=== PATIENT | male | born 1950 ===

== ENCOUNTER 2018-12-13 06:12 | Inpatient (IN) | payer OTHER ==
[2018-12-13] MEDS ORDERED: BENZOIN TINCTURE SWABSTICK TP ONE (07:15)
[2018-12-13] MEDS ORDERED: HEPARIN NA (PORCINE) 5,000 UNITS/ML 1ML VIAL ONE (07:15)
[2018-12-13] MEDS ORDERED: THROMBIN (BOVINE) 5,000 UNIT VIAL TP ONE ×2 (07:16→09:22)
[2018-12-13] MEDS ORDERED: BUPIVACAINE HCL/PF 0.5% (5MG/ML) 10 ML VIAL ONE (07:19)
[2018-12-13] MEDS ORDERED: BUPIVACAINE LIPOSOME/PF (EXPAREL) 266 MG/20 ML VIAL ONE (07:19)
[2018-12-13] MEDS ORDERED: PROPOFOL 20 ML ONE ×10 (07:30→10:52)
[2018-12-13] MEDS ORDERED: SUCCINYLCHOLINE CHLORIDE 200 MG/10 ML VIAL ONE (07:30)
[2018-12-13] MEDS ORDERED: MIDAZOLAM HCL 2 MG/2 ML SINGLE DOSE VIAL ONE ×2 (07:31)
[2018-12-13] MEDS ORDERED: DESFLURANE GAS 240 ML BOTTLE IH ONE (07:44)
[2018-12-13] MEDS ORDERED: VANCOMYCIN 1,000 MG VIAL (RESTRICTED TO ID ONLY) ONE (08:25)
[2018-12-13] MEDS ORDERED: VANCOMYCIN 1,000 MG VIAL (RESTRICTED TO ID ONLY) IVPB ONE (08:40)
[2018-12-13] MEDS ORDERED: ceFAZolin SODIUM 1 GM VIAL ONE ×2 (08:56→11:19)
[2018-12-13] MEDS ORDERED: ceFAZolin SODIUM 1 GM VIAL IVPB ONE (09:00)
[2018-12-13] MEDS ORDERED: ONDANSETRON 4 MG/2 ML VIAL ONE (09:02)
[2018-12-13] MEDS ORDERED: TRANEXAMIC ACID 1000 MG/10 ML VIAL ONE ×2 (09:02→11:46)
[2018-12-13] MEDS ORDERED: DEXAMETHASONE SOD PHOSPHATE 4 MG/1 ML VIAL ONE (09:02)
[2018-12-13] MEDS ORDERED: SODIUM CHLORIDE 0.9% P/F 10 ML VIAL IJ ONE (09:08)
[2018-12-13] MEDS ORDERED: ROCURONIUM BROMIDE 50 MG/5 ML VIAL ONE (09:10)
[2018-12-13] MEDS ORDERED: PHENYLEPHRINE HCL 10 MG/1 ML SINGLE DOSE VIAL ONE (09:18)
[2018-12-13] MEDS ORDERED: NEOSTIGMINE METHYLSULFATE 0.5 MG/1 ML - 10 ML MDV ONE (09:51)
[2018-12-13] MEDS ORDERED: ePHEDrine SULFATE 50 MG/1 ML AMPULE ONE (10:06)
[2018-12-13] MEDS ORDERED: ONDANSETRON 4 MG/2 ML VIAL IVPUSH PRN (11:07)
[2018-12-13] MEDS ORDERED: diphenhydrAMINE HCL 25 MG CAPSULE (FP) PO PRN (11:07)
[2018-12-13] MEDS ORDERED: POLYETHYLENE GLYCOL 3350 119 GM BTL PO PRN (11:12)
[2018-12-13] MEDS ORDERED: SENNOSIDES 8.6MG TABLET (FP) PO PRN (11:13)
[2018-12-13] MEDS ORDERED: HYDROmorphone HCl 2 MG/ML VIAL ONE (11:33)
[2018-12-13] MEDS: LACTATED RINGERS SOLUTION 1,000 ML/1,000 ML INFUS.BAG IV SCH (12:45)
--- NOTE | 2018-12-13 13:42 | CONSULT ---
Consultation: REQUESTING PROVIDER: Dr. Santos CONSULT REQUEST: We have been asked to medically evaluate this patient for ( specify) post-op ICU monitoring s/p lumbar surgery. HISTORY OF PRESENT ILLNESS: 68M w/ pmhx of HTN, NIDDM, chronic back pain presents to the ICU s/p L3-L4, L4- L5 diskectomy and PLIF w/ incidental durostomy, POD #0. Pt has had chronic back pain since which he admits to only taking Motrin, and occasionally Percocet although he actively tries to avoid taking narcotics for the pain. In 2018, pt underwent two lumbar spinal surgeries (1 month apart) from another surgeon due to lumbar disc herniation, although he complained of recurrent herniation in the same level and decided to proceed with surgical treatment with Dr. Santos instead. Pt complains of chronic sciatica on his R leg where he admits to using a cane for the past 1.5 years due to pain during ambulation. Upon exam, he complains of his back feeling "tired". Admits to 6/10 pain, but pain is well-controlled. Denies f/c, lo/d, chest pain, sob, abd pain, numbness/ tingling in extremities. PMHx: HTN, NIDDM PSH: hernia repair (2018), lumbar spinal surgery x2 (2018), L leg laceration repair due to chainsaw injury at workplace FHx: Mother- DM Social: Denies tobacco, alcohol, rec drug use. Denies recent travel. 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 REVIEW OF SYSTEMS: Neg, except as per HPI PHYSICAL EXAMINATION Vital Signs - 24 hr 12/13/18 12/13/18 12/13/18 06:41 12:45 13:00 Temperature 98.1 F 98.3 F 97.9 F Pulse Rate 112 H 95 H 90 Respiratory 20 14 13 Rate Blood Pressure 112/71 107/82 104/62 O2 Sat by Pulse 98 95 100 Oximetry (%) 12/13/18 13:15 Temperature 97.7 F Pulse Rate 90 Respiratory 20 Rate Blood Pressure 125/79 O2 Sat by Pulse 100 Oximetry (%) GENERAL: AAOx3. NAD. Mildy uncomfortable in bed. HEENT: AT/NC. EOMI. MMM NECK: Normal range of motion, supple without lymphadenopathy, JVD, or masses. LUNGS: CTA B/L. No wheezes/crackles/rales noted. HEART: RRR. Normal S1, S2. No murmurs noted. ABDOMEN: Soft, nontender, not distended, hypoactive bowel sounds. MUSCULOSKELETAL: Lumbar spine dressing c/d/i. lower back tenderness. UPPER EXTREMITIES: 2+ radial pulses b/l. Moves both UE. No peripheral edema. LOWER EXTREMITIES: 2+ pulses, warm, well-perfused. No calf tenderness. No peripheral edema. Moves b/l toes and feet. NEUROLOGICAL: Responds to commands. Facial muscles intact. No tongue deviation. Normal sensation b/l. SKIN: Warm, dry, normal turgor, no rashes or lesions noted. Laboratory Results - last 24 hr 12/13/18 12/13/18 12/13/18 06:20 06:49 07:40 POC Glucometer 167 Blood Type B POSITIVE B POSITIVE Antibody Screen Negative Active Medications Acetaminophen (Ofirmev Injection -) 1,000 mg IVPB Q6H PRN PRN Reason: PAIN OR FEVER Diphenhydramine HCl (Benadryl -) 25 mg PO Q6H PRN PRN Reason: FOR ITCHING Docusate Sodium (Colace -) 100 mg PO TID [facility] Ferrous Sulfate (Feosol -) 325 mg PO DAILY [facility] Folic Acid (Folic Acid -) 1 mg PO DAILY [facility] Hydromorphone HCl (Dilaudid Vial -) 1 mg IVPUSH Q4H PRN PRN Reason: PAIN LEVEL 6-10 Cefazolin Sodium (Ancef 1 Gm Premixed Ivpb -) 1 gm in 50 mls @ 100 mls/hr IVPB Q8H [facility] Stop: 12/14/18 16:59 Lactated Ringer's (Lactated Ringers Solution) 1,000 ml in 1,000 mls @ 125 mls/ hr IV ASDIR [facility] Insulin Aspart (Novolog Vial Sliding Scale -) 1 vial SQ BIDAC [facility]; Protocol Lisinopril (Prinivil) 20 mg PO DAILY [facility] Ondansetron HCl (Zofran Injection) 4 mg IVPUSH Q6H PRN PRN Reason: NAUSEA Polyethylene Glycol (Miralax (For Daily Use) -) 17 gm PO DAILY PRN PRN Reason: CONSTIPATION Senna (Senna -) 2 tab PO HS PRN PRN Reason: CONSTIPATION Terazosin HCl (Hytrin -) 2 mg PO DAILY [facility] ASSESSMENT/PLAN: 68M w/ pmhx of HTN, NIDDM, chronic back pain presents to the ICU s/p L3-L4, L4- L5 diskectomy and PLIF w/ incidental durostomy, POD #0 admitted to the ICU for post-op monitoring. #S/p L3-L4, L4-L5 diskectomy and PLIF w/ incidental durostomy; POD #0 -Keep pt flat x48 hours; HOB @ 30 degrees when eating -IVf -Pain control per anesthesia: IV Tylenol, Dilaudid 1 mg IVP Q4H -IV Abx per surg -PT on Thursday -Clears, ADAT -Keep dennis until OOB -SCDs/IS -Zofran 4 IVP Q6H for nausea -Bowel regimen: Colace 100 TID, Miralax 17 QD, Senna 2 tab HS #HTN Cont home med: Lisinopril 20 QD #NIDDM -BGM/ISS ACHS #BPH Cont home med: Terazosin 2 PO QD #Prophylaxis -SCDs, hold chemical ppx #FEN -LR @ 125 -replete lytes PRN -CLD Admit to ICU Dispo: We will continue to follow the patient. Thank you for this consultative opportunity. Visit type - Emergency Visit Emergency Visit: No - New Patient This patient is new to me today: Yes Date on this admission: 12/13/18 - Critical Care Critical Care patient: Yes Total Critical Care Time (in minutes): 35 Critical Care Statement: The care of this patient involved high complexity decision making to prevent further life threatening deterioration of the patient 's condition and/or to evaluate & treat vital organ system(s) failure or risk of failure.
[2018-12-13] MEDS: DOCUSATE SODIUM 100 MG CAPSULE (FP) PO SCH (14:58)
[2018-12-13] MEDS ORDERED: LISINOPRIL 20 MG TABLET (FP) PO ONE (15:25)
--- NOTE | 2018-12-13 17:14 | OP ---
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 Laminectomy of L3-L4 with undercutting facetectomy. 2. Diskectomy of L3-L4, L4-L5. 3. Posterior lumbar interbody fusion L3-L4, L4-L5 with autologous bone and Fortilink intradiscal biomechanical device (interbody) L3-L4 , L4-L5. 4. Pedicle screw instrumentation of L3, L4, and L5. 5. Pressuried arthrodesis of L3, L4, L5 6. Bone aspirate concentrate. 7. Autologous bone graft harvested with expansion of allograft. 8. Biplanar fluoroscopy and intraoperative neural monitoring. Findings: as dictated Implants: as dictated Post-Operative Diagnosis: Same as Pre-op Surgeon: Uzair Santos Artificial Breast Fabricator: Parker Walden Anesthesiologist/INTERNATIONAL STUDENT ADVISOR: Meng Suggs Anesthesia: General Specimens Removed: L3-L5 disc Estimated Blood Loss (mls): 400 (ml) Drains, Volume Out (mls): 150 (ml clear urine) Blood Volume Replaced (mls): 125 (ml via cell saver) Fluid Volume Replaced (mls): 1,600 (ml LR) Operative Report Dictated: Yes
[2018-12-13] MEDS: ACETAMINOPHEN 1000 MG/100 ML VIAL (NON FORMULARY) IVPB PRN (17:17)
[2018-12-13] MEDS: CEFAZOLIN 1 GM/D5W 1 GM/50 ML BAG IVPB SCH (17:18)
[2018-12-13] MEDS: INSULIN SLIDING SCALE (NOVOLOG) 1 VIAL SQ SCH (17:19)
[2018-12-13] MEDS ORDERED: ACETAMINOPHEN 325 MG TABLET (FP) PO PRN (19:00)
[2018-12-13] MEDS: HYDROmorphone HCl 2 MG/ML VIAL IVPUSH PRN (21:34)
--- NOTE | 2018-12-13 23:37 | PN ---
Physical Exam: SUBJECTIVE: Patient seen and examined at bedside, awake, alert and oriented. s/ p L2-S1 Posterior Lumbar Interbody Fusion POD #0. Patient reports having lumbar pain and coldness to b/l feet. Painscale 03/07. Patient denies fever, cough, dizziness, MAZARIEGOS, SOB, CP, palpitations, AP, N/V/D. OBJECTIVE: Vital Signs Period Temp Pulse Resp BP Sys/Mathews Pulse Ox Last 24 Hr 97.7 F-98.4 F 83-112 9-20 104-168/62-94 95-100 GENERAL: The patient is awake, alert, and fully oriented, in no acute distress. HEAD: Normal with no signs of trauma. EYES: PERRL, extraocular movements intact, sclera anicteric, conjunctiva clear. No ptosis. ENT: Ears normal, nares patent, oropharynx clear without exudates, moist mucous membranes. NECK: Trachea midline, full range of motion, supple. LUNGS: Breath sounds equal, clear to auscultation bilaterally, no wheezes, no crackles, no accessory muscle use. HEART: Regular rate and rhythm, S1, S2 without murmur, rub or gallop. ABDOMEN: Soft, nontender, nondistended, hypoactive bowel sounds, no guarding, no rebound, no hepatosplenomegaly, no masses. MUSCULOSKELETAL: unable to assess dressing, (patient is in pain) EXTREMITIES: 2+ pulses, warm, well-perfused, no edema. NEUROLOGICAL: Cranial nerves II through XII grossly intact. Normal speech, gait not observed. PSYCH: Normal mood, normal affect. SKIN: Warm, dry, normal turgor, no rashes or lesions noted Laboratory Results - last 24 hr 12/13/18 12/13/18 12/13/18 06:20 06:49 07:40 POC Glucometer 167 Blood Type B POSITIVE B POSITIVE Antibody Screen Negative 12/13/18 12/13/18 16:28 23:08 POC Glucometer 193 176 Blood Type Antibody Screen Active Medications Generic Name Dose Route Start Last Admin Trade Name Freq PRN Reason Stop Dose Admin Acetaminophen 1,000 mg 12/13/18 12:52 12/13/18 17:17 Ofirmev Injection - IVPB 1,000 mg Q6H PRN Administration PAIN OR FEVER Diphenhydramine HCl 25 mg 12/13/18 11:07 Benadryl - PO Q6H PRN FOR ITCHING Docusate Sodium 100 mg 12/13/18 14:00 12/13/18 14:58 Colace - PO Not Given TID [facility] Ferrous Sulfate 325 mg 12/14/18 10:00 Feosol - PO DAILY [facility] Folic Acid 1 mg 12/14/18 10:00 Folic Acid - PO DAILY [facility] Hydromorphone HCl 1 mg 12/13/18 12:50 12/13/18 21:34 Dilaudid Vial - IVPUSH 1 mg Q4H PRN Administration PAIN LEVEL 6-10 Cefazolin Sodium 1 gm in 50 mls @ 100 mls/hr 12/13/18 17:00 12/13/18 17:18 Ancef 1 Gm Premixed Ivpb - IVPB 12/14/18 16:59 100 mls/hr Q8H [facility] Administration Lactated Ringer's 1,000 ml in 1,000 mls @ 125 mls/hr 12/13/18 11:15 12/13/18 12:45 Lactated Ringers Solution IV 125 mls/hr ASDIR [facility] Administration Insulin Aspart 1 vial 12/13/18 16:30 12/13/18 17:19 Novolog Vial Sliding Scale - SQ 2 units BIDAC [facility] Administration Protocol Lisinopril 20 mg 12/14/18 10:00 Prinivil PO DAILY [facility] Ondansetron HCl 4 mg 12/13/18 11:07 Zofran Injection IVPUSH Q6H PRN NAUSEA Polyethylene Glycol 17 gm 12/13/18 11:12 Miralax (For Daily Use) - PO DAILY PRN CONSTIPATION Senna 2 tab 12/13/18 11:13 Senna - PO HS PRN CONSTIPATION Terazosin HCl 2 mg 12/14/18 10:00 Hytrin - PO DAILY [facility] ASSESSMENT/PLAN: This is a 68 y/o man with a PMHx of: HTN, DM, BPH, Chronic Lumbar Pain. s/p L2- S1 Posterior Lumbar Interbody Fusion POD #0. Plan: Will continue Ortho regimen Pain Mgmt- Dilaudid AUTOMOTIVE SALES PROFESSIONAL, per ortho Incentive Spirometer Monitor CBC, BMP Bedrest 48hrs per Ortho BGMs ISS Continue Hytrin, Lisinopril Hold Metformin Bowel Regimen- Senna, Colace Low Na, Diabetic Diet Fall Precautions Code Status: Full Code Dispo: Requires Inpatient Care Problem List - Problems (1) S/P lumbar spinal fusion Code(s): Z98.1 - ARTHRODESIS STATUS (2) HTN (hypertension) Code(s): I10 - ESSENTIAL (PRIMARY) HYPERTENSION (3) Diabetes mellitus Code(s): E11.9 - TYPE 2 DIABETES MELLITUS WITHOUT COMPLICATIONS (4) BPH (benign prostatic hyperplasia) Code(s): N40.0 - BENIGN PROSTATIC HYPERPLASIA WITHOUT LOWER URINRY TRACT SYMP Visit type - Emergency Visit Emergency Visit: No - New Patient This patient is new to me today: Yes Date on this admission: 12/13/18 - Critical Care Critical Care patient: Yes Total Critical Care Time (in minutes): 32 Critical Care Statement: The care of this patient involved high complexity decision making to prevent further life threatening deterioration of the patient 's condition and/or to evaluate & treat vital organ system(s) failure or risk of failure. - Discharge Referral Referred to [facility] Med P.C.: No
[2018-12-14] MEDS: CEFAZOLIN 1 GM/D5W 1 GM/50 ML BAG IVPB SCH ×2 (02:00→09:18)
[2018-12-14] MEDS: HYDROmorphone HCl 2 MG/ML VIAL IVPUSH PRN ×5 (05:26→23:55)
[2018-12-14] MEDS ORDERED: HEPARIN NA (PORCINE) 5,000 UNITS/ML 1ML VIAL SQ SCH (06:00)
[2018-12-14 06:15] LABS: HEMATOCRIT 37.3 % (35.4-49); HEMOGLOBIN 13.5 GM/dL (11.7-16.9); MCH 31.7 pg (25.7-33.7); MCHC 36.3 g/dl (32.0-35.9); MEAN CELL VOLUME 87.4 fl (80-96); MEAN PLT VOLUME 7.9 fl (7.5-11.1); PLATELET COUNT 173 K/MM3 (134-434); RBC 4.27 M/mm3 (4.00-5.60); WHITE BLOOD COUNT 13.6 K/mm3 (4.0-10.0)
[2018-12-14] MEDS: DOCUSATE SODIUM 100 MG CAPSULE (FP) PO SCH ×4 (06:36→22:18)
[2018-12-14] MEDS: ACETAMINOPHEN 1000 MG/100 ML VIAL (NON FORMULARY) IVPB PRN (06:37)
[2018-12-14 06:44] LABS: ANION GAP 6 MMOL/L (8-16); BLOOD UREA NITROGEN 13 mg/dL (7-18); CALCIUM 8.6 mg/dL (8.5-10.1); CHLORIDE 105 mmol/L (98-107); CO2 27 mmol/L (21-32); CREATININE 0.7 mg/dL (0.55-1.3); GLUCOSE,RANDOM 141 mg/dL (74-106); SODIUM 137 mmol/L (136-145)
[2018-12-14] MEDS: INSULIN SLIDING SCALE (NOVOLOG) 1 VIAL SQ SCH ×2 (06:52→17:15)
--- NOTE | 2018-12-14 07:26 | PN ---
Physical Exam: SUBJECTIVE: Patient seen and examined at bedside. Complaining of back pain after his sheets were changed this AM. Denies lo/d, n/v, chest pain, sob, abd pain. Has not passed flatus yet. No other acute events overnight. OBJECTIVE: Vital Signs Period Temp Pulse Resp BP Sys/Mathews Pulse Ox Last 24 Hr 97.7 F-99.1 F 83-95 9-20 104-168/62-94 95-100 GENERAL: AAOx3. NAD. Resting comfortable in bed. HEENT: AT/NC. EOMI. MMM NECK: Normal range of motion, supple without lymphadenopathy, JVD, or masses. LUNGS: CTA B/L. No wheezes/crackles/rales noted. HEART: RRR. Normal S1, S2. No murmurs noted. ABDOMEN: Soft, nontender, not distended, hypoactive bowel sounds. MUSCULOSKELETAL: Lumbar spine dressing c/d/i. lower back tenderness. UPPER EXTREMITIES: 2+ radial pulses b/l. Moves both UE. No peripheral edema. LOWER EXTREMITIES: 2+ pulses, warm, well-perfused. No calf tenderness. No peripheral edema. Moves b/l toes and feet. NEUROLOGICAL: Responds to commands. Facial muscles intact. No tongue deviation. Normal sensation b/l. SKIN: Warm, dry, normal turgor, no rashes or lesions noted. CBC, BMP 12/14/18 05:30 12/14/18 05:30 Active Medications Acetaminophen (Ofirmev Injection -) 1,000 mg IVPB Q6H PRN PRN Reason: PAIN OR FEVER Last Admin: 12/14/18 06:37 Dose: 1,000 mg Diphenhydramine HCl (Benadryl -) 25 mg PO Q6H PRN PRN Reason: FOR ITCHING Docusate Sodium (Colace -) 100 mg PO TID [facility] Last Admin: 12/14/18 06:53 Dose: 100 mg Ferrous Sulfate (Feosol -) 325 mg PO DAILY [facility] Folic Acid (Folic Acid -) 1 mg PO DAILY [facility] Hydromorphone HCl (Dilaudid Vial -) 1 mg IVPUSH Q4H PRN PRN Reason: PAIN LEVEL 6-10 Last Admin: 12/14/18 05:26 Dose: 1 mg Cefazolin Sodium (Ancef 1 Gm Premixed Ivpb -) 1 gm in 50 mls @ 100 mls/hr IVPB Q8H [facility] Stop: 12/14/18 16:59 Last Admin: 12/14/18 02:00 Dose: 100 mls/hr Lactated Ringer's (Lactated Ringers Solution) 1,000 ml in 1,000 mls @ 125 mls/ hr IV ASDIR [facility] Last Admin: 12/13/18 12:45 Dose: 125 mls/hr Insulin Aspart (Novolog Vial Sliding Scale -) 1 vial SQ BIDAC [facility]; Protocol Last Admin: 12/14/18 06:52 Dose: 2 units Lisinopril (Prinivil) 20 mg PO DAILY [facility] Ondansetron HCl (Zofran Injection) 4 mg IVPUSH Q6H PRN PRN Reason: NAUSEA Polyethylene Glycol (Miralax (For Daily Use) -) 17 gm PO DAILY PRN PRN Reason: CONSTIPATION Senna (Senna -) 2 tab PO HS PRN PRN Reason: CONSTIPATION Terazosin HCl (Hytrin -) 2 mg PO DAILY [facility] ASSESSMENT/PLAN: 68M w/ pmhx of HTN, NIDDM, chronic back pain presents to the ICU s/p L3-L4, L4- L5 diskectomy and PLIF w/ incidental durostomy, POD #0 admitted to the ICU for post-op monitoring. Neuro #S/p L3-L4, L4-L5 diskectomy and PLIF w/ incidental durostomy; POD #0 -remain supine for next 24 hours -IVf -Pain control per anesthesia: IV Tylenol, Dilaudid 1 mg IVP Q4H -IV Abx per surg -PT to begin 12/15/18 -Clears, ADAT -D/c dennis -SCDs/IS -Zofran 4 IVP Q6H for nausea -Bowel regimen: Colace 100 TID, Miralax 17 QD, Senna 2 tab HS CV #HTN Cont home med: Lisinopril 20 QD, Terazosin 2 QD Endo #NIDDM -BGM/ISS ACHS Prophylaxis -SCDs, hold chemical ppx FEN -LR @ 125 -replete lytes PRN -CLD, ADAT dispo -cont to monitor in ICU Visit type - Emergency Visit Emergency Visit: Yes ED Registration Date: 12/13/18 Care time: The patient presented to the Emergency Department on the above date and was hospitalized for further evaluation of their emergent condition. - New Patient This patient is new to me today: No - Critical Care Critical Care patient: Yes Total Critical Care Time (in minutes): 35 Critical Care Statement: The care of this patient involved high complexity decision making to prevent further life threatening deterioration of the patient 's condition and/or to evaluate & treat vital organ system(s) failure or risk of failure.
--- NOTE | 2018-12-14 08:07 | PN ---
Progress Note (short form) - Note Progress Note: POD #1 Alert. Remains supine in bed as instructed (precaution 2/2 repair of incidental dural tear/repair). No acute events per RN notes since surgery. Dennis remains in and will cont to do so until he is OOB. Denies n/v/f/c, CP, SOB, GARCIA, MAZARIEGOS or photophobia. Last Vital Signs Temp Pulse Resp BP Pulse Ox 99.1 F 84 11 128/75 100 12/14/18 02:00 12/14/18 02:00 12/14/18 02:00 12/14/18 02:00 12/13/18 21:00 CBC, BMP 12/14/18 05:30 12/14/18 05:30 PE Gen: alert. NAD. Back: dressing c/d/i. No hematoma. : dennis to gravity (clear) LE: SCDs bilat. Soft. NT Neuro; GMNVI bilat Problem List - Problems (1) S/P lumbar spinal fusion Assessment/Plan: POD #1 s/p L3-L5 PLIF, repair of durotomy Pain management PRN Remain supine for next 24 hours Finger sticks ACHS --> tight glycemic control Dennis to remain until he is OOB to chair PT to begin 12/15/18 Incentive spirometer SCDs bilat Diet as tolerated. Dr. Santos made aware and agrees with above plan. Code(s): Z98.1 - ARTHRODESIS STATUS
--- NOTE | 2018-12-14 08:25 | OP ---
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 OPERATION PERFORMED: 1. Laminectomy of L3-L4 with undercutting facetectomy. 2. Diskectomy of L3-L4, L4-L5. 3. Posterior lumbar interbody fusion L3-L4, L4-L5 with autologous bone and Fortilink intradiscal biomechanical device (interbody) L3-L4 and L4-L5. 4. Pedicle screw instrumentation of L3, L4, and L5. 5. Posterolateral arthrodesis of L3, L4, and L5. 6. Bone aspirate concentrate. 7. Autologous bone graft harvested with expansion of allograft. 8. Biplanar fluoroscopy and intraoperative neural monitoring. ANESTHESIA: General. ANTIBIOTICS GIVEN: Kefzol 2 g, 1 g vancomycin preoperative, 1 g Kefzol intraoperatively, and 10 mg of Decadron given as well. BLOOD LOSS: Approximately 400 mL; 200 Cell Saver given back. OPERATION IN DETAIL: With the patient prone on jelly rolls, after general anesthesia, all bony prominences were properly padded. The lumbar spine was exposed from the tip of the spinous process of L2 to the tip of the spinous process of L5. It must be noted that this is a revision surgery because the previous microdiskectomy on the right L3-L4 disk had originally been performed. The dissection was taken through the skin and subcutaneous tissue to the tip of the spinous processes. A subperiosteal resection was performed and spread down to the spinous process, across the lamina, over the facet joints, and out to the tip of the transverse processes, lifting the muscle off of the transverse process. The intertransverse plane was packed with sponges. This achieved hemostasis. Verification of the levels with a lateral fluoroscopic x-ray utilized. The fibrosis from the previous surgery was readily noted. Dissection with exposure of the lamina using Kerrison up-cuts, Leksell rongeurs, a laminectomy was performed; however, the adherence was so severe at L3-L4 on the right-hand side that the only way to get under the dura to get to the disk prolapse was to go through previously operated tissue and the root of that was by utilizing an osteotomy. The pars articularis and inferior facet at each level was resected. This was then followed by exposure of the area. A small dural tear because of the adherence of the dura to the underlying bone occurred. This rest was intact, but the dura was repaired with 4-0 nylon sutures. Watertight seal achieved. On 2 separate occasions, Valsalva maneuver was performed up to 40 mmHg and completely sealed. Once the dura was freed completely on both left and right-hand sides, with painstaking difficulty, we were able to get under the nerve root of the L3 level and retract this gently from [id number] to expose a massive disk prolapse with inferior migration of the disk under and trapped by the posterior longitudinal ligament. The annulus was opened. All disk material was removed. The disk was then shaved appropriately. At this level, using serrated curette as well as pituitary rongeurs, all disk material was then removed right down to healthy endplate bleeding bone. The disk itself was packed with bone that was harvested from the posterior elements and packed into the interbody space followed by the Fortilink cage, which measured 9 x 22 mm. This was packed with bone graft. Solid pressure fixation achieved. We shaved to 9 and inserted a 10. We performed the exact same procedure at L4-L5. This necessitated far less dissection because this was virgin tissue. The theca was retracted. The disc opened, shaved, and a spacer measuring 9 mm and shaving was to size 8 mm. All disk material likewise was exactly in the same manner as the L3-L4 disk was removed using the Kerrison up-cuts as well as pituitary rongeurs. Serrated curettes also ensured that the end-plate bone was healthy. Once this had been performed, the dura was once again inspected. A thorough lavage was performed. Verification of the cages on x-ray revealed excellent seating. Pedicles of L3, L4, and L5 were then entered using anatomic guidelines. Each pedicle was drilled with a 4.5 drill. Each pedicle was palpated with a ball-tipped feeler and found to be completely safe with normal neural parameters. Then, 40 mm x 6.5 screws x 6 were inserted, 1 into each pedicle. Each pedicle was tested with intraoperative neural monitoring and found to be well above the safe parameters. Once we were satisfied with the screw seating, which included EMG stimulation and anatomic guideline seating and AP and lateral fluoroscopic films, the actual rods were then applied to the tulips and the screw heads, tightened with the appropriate caps, and 1 cross link applied. Solid fixation achieved. The bone, which was mixture of bone marrow aspirate concentrate from the left posterior ileum, 60 mL were removed through the same incision, and this was spun down for the CD34 cells. This left an appropriate thick fluid residue which was filled with CD34 cells, mixture of bone graft, and packed into the interbody space in the intertransverse plane appropriately. No complications. The wounds were thoroughly lavaged. Muscle was appropriately trimmed of necrotic damaged muscle from the retractors and the skin was closed with complex wound closure with muscle 1 Vicryl, fascia 1 Vicryl, subcutaneous 1 and 2-0 Vicryl in layers, and 3-0 Monocryl with Steri-Strips. No drains inserted. Operation went well. No complications. The measurement of the complex wound was 30 mL. MD CHAU Presley/[id number] MTDD
[2018-12-14] MEDS ORDERED: PT OWN MED DRAWER 7, Y5N ONE (09:00)
[2018-12-14] MEDS ORDERED: TERAZOSIN HCL 1 MG CAPSULE PO SCH (10:00)
[2018-12-14] MEDS ORDERED: FOLIC ACID 1 MG TABLET (FP) PO SCH (10:00)
[2018-12-14] MEDS ORDERED: FERROUS SO4 325 MG TABLET (FP) PO SCH (10:00)
[2018-12-14] MEDS ORDERED: LISINOPRIL 20 MG TABLET (FP) PO SCH (10:00)
[2018-12-14] MEDS ORDERED: TERAZOSIN HCL 2 MG CAPSULE PO SCH (10:00)
--- NOTE | 2018-12-14 10:25 | PN ---
Physical Exam: SUBJECTIVE: Patient seen and examined at the bedside. laying in bed flat. reports some pain relieved with dilaudid. OBJECTIVE: pod #1 surgical site not viewed, as pt is having pain Vital Signs Period Temp Pulse Resp BP Sys/Mathews Pulse Ox Last 24 Hr 97.7 F-99.1 F 82-95 9-20 104-168/62-94 95-100 GENERAL: The patient is awake, alert, and fully oriented, in no acute distress. HEAD: Normal with no signs of trauma. EYES: PERRL, extraocular movements intact, sclera anicteric, conjunctiva clear. No ptosis. ENT: Ears normal, nares patent, oropharynx clear without exudates, moist mucous membranes. NECK: Trachea midline, full range of motion, supple. LUNGS: Breath sounds equal, clear to auscultation anteriorly. HEART: Regular rate and rhythm ABDOMEN: Soft, nontender, nondistended, normoactive bowel sounds, EXTREMITIES: no edema. NEUROLOGICAL:normal speech, gait not observed. PSYCH: Normal mood, normal affect. Laboratory Results - last 24 hr 12/13/18 12/13/18 12/14/18 16:28 23:08 05:30 WBC 13.6 H RBC 4.27 Hgb 13.5 Hct 37.3 MCV 87.4 MCH 31.7 MCHC 36.3 H RDW 13.0 Plt Count 173 MPV 7.9 Sodium Potassium Chloride Carbon Dioxide Anion Gap BUN Creatinine Creat Clearance w eGFR POC Glucometer 193 176 Random Glucose Calcium 12/14/18 12/14/18 05:30 06:50 WBC RBC Hgb Hct MCV MCH MCHC RDW Plt Count MPV Sodium 137 Potassium 4.0 Chloride 105 Carbon Dioxide 27 Anion Gap 6 L BUN 13 Creatinine 0.7 Creat Clearance w eGFR 112.83 POC Glucometer 154 Random Glucose 141 H Calcium 8.6 Active Medications Generic Name Dose Route Start Last Admin Trade Name Freq PRN Reason Stop Dose Admin Acetaminophen 1,000 mg 12/13/18 12:52 12/14/18 06:37 Ofirmev Injection - IVPB 1,000 mg Q6H PRN Administration PAIN OR FEVER Diphenhydramine HCl 25 mg 12/13/18 11:07 Benadryl - PO Q6H PRN FOR ITCHING Docusate Sodium 100 mg 12/13/18 14:00 12/14/18 06:53 Colace - PO 100 mg TID LETY Administration Ferrous Sulfate 325 mg 12/14/18 10:00 12/14/18 09:18 Feosol - PO 325 mg DAILY LETY Administration Folic Acid 1 mg 12/14/18 10:00 12/14/18 09:18 Folic Acid - PO 1 mg DAILY LETY Administration Hydromorphone HCl 1 mg 12/13/18 12:50 12/14/18 05:26 Dilaudid Vial - IVPUSH 1 mg Q4H PRN Administration PAIN LEVEL 6-10 Cefazolin Sodium 1 gm in 50 mls @ 100 mls/hr 12/13/18 17:00 12/14/18 09:18 Ancef 1 Gm Premixed Ivpb - IVPB 12/14/18 16:59 100 mls/hr Q8H LETY Administration Lactated Ringer's 1,000 ml in 1,000 mls @ 125 mls/hr 12/13/18 11:15 12/13/18 12:45 Lactated Ringers Solution IV 125 mls/hr ASDIR LETY Administration Insulin Aspart 1 vial 12/13/18 16:30 12/14/18 06:52 Novolog Vial Sliding Scale - SQ 2 units BIDAC LETY Administration Protocol Lisinopril 20 mg 12/14/18 10:00 12/14/18 09:18 Prinivil PO 20 mg DAILY LETY Administration Ondansetron HCl 4 mg 12/13/18 11:07 Zofran Injection IVPUSH Q6H PRN NAUSEA Polyethylene Glycol 17 gm 12/13/18 11:12 Miralax (For Daily Use) - PO DAILY PRN CONSTIPATION Senna 2 tab 12/13/18 11:13 Senna - PO HS PRN CONSTIPATION Terazosin HCl 2 mg 12/14/18 10:00 12/14/18 09:18 Hytrin - PO 2 mg DAILY LETY Administration ASSESSMENT/PLAN: Patient is a 68 year old male with a significant past medical history of hypertension, dm, bph, chronicl lumbar spine pain. He is s/p L2-S1 Posterior Lumbar Interbody Fusion POD #1. Back surgery Pain management Post op antibiotics, bowel regimen, incentive spirometer bed rest x 24 more hours per surgery monitor labs Hypertension. controlled On lisinopril, hytrin Endocrine diabetes on SS, mildly elevated add levemir if remains elevated currently has poor PO intake fen tolerating po monitor electrolytes diabetic diet prophy scds Visit type - Emergency Visit Emergency Visit: Yes ED Registration Date: 12/13/18 Care time: The patient presented to the Emergency Department on the above date and was hospitalized for further evaluation of their emergent condition. - New Patient This patient is new to me today: Yes Date on this admission: 12/14/18 - Critical Care Critical Care patient: Yes Total Critical Care Time (in minutes): 40 Critical Care Statement: The care of this patient involved high complexity decision making to prevent further life threatening deterioration of the patient 's condition and/or to evaluate & treat vital organ system(s) failure or risk of failure.
[2018-12-14] MEDS: LACTATED RINGERS SOLUTION 1,000 ML/1,000 ML INFUS.BAG IV SCH (11:34)
--- NOTE | 2018-12-14 12:37 | PN ---
Progress Note (short form) - Note Progress Note: Anesthesia postop note 68 y/o M s/p GA for L3-5 PLIF POD#1 vss, in icu, some pain today, pain medication given earlier. No anesthesia complications.
--- NOTE | 2018-12-14 12:41 | PN ---
Teaching Attending Note Name of Resident: Dana Urrutia ATTENDING PHYSICIAN STATEMENT I saw and evaluated the patient. I reviewed the resident's note and discussed the case with the resident. I agree with the resident's findings and plan as documented. SUBJECTIVE: Pt seen and examined in the ICU. Still with significant back pain. No nausea or vomiting. No flatus. No shortness of breath or chest pain. OBJECTIVE: Vital Signs Period Temp Pulse Resp BP Sys/Mathews Pulse Ox Last 24 Hr 97.7 F-99.4 F 82-95 9-20 104-168/62-94 95-100 Intake & Output 12/11/18 12/12/18 12/13/18 12/14/18 23:59 23:59 23:59 23:59 Intake Total 2745 1250 Output Total 1600 2100 Balance 1145 -850 Weight 81.4 kg Gen: NAD at rest Heart: RRR Lung: decreased breath sounds at the bases Abd: soft, nontender Ext: no edema CBC, BMP 12/14/18 05:30 12/14/18 05:30 Active Medications Acetaminophen (Ofirmev Injection -) 1,000 mg IVPB Q6H PRN PRN Reason: PAIN OR FEVER Last Admin: 12/14/18 06:37 Dose: 1,000 mg Diphenhydramine HCl (Benadryl -) 25 mg PO Q6H PRN PRN Reason: FOR ITCHING Docusate Sodium (Colace -) 100 mg PO TID [facility] Last Admin: 12/14/18 06:53 Dose: 100 mg Ferrous Sulfate (Feosol -) 325 mg PO DAILY [facility] Last Admin: 12/14/18 09:18 Dose: 325 mg Folic Acid (Folic Acid -) 1 mg PO DAILY [facility] Last Admin: 12/14/18 09:18 Dose: 1 mg Hydromorphone HCl (Dilaudid Vial -) 1 mg IVPUSH Q4H PRN PRN Reason: PAIN LEVEL 6-10 Last Admin: 12/14/18 09:52 Dose: 1 mg Cefazolin Sodium (Ancef 1 Gm Premixed Ivpb -) 1 gm in 50 mls @ 100 mls/hr IVPB Q8H [facility] Stop: 12/14/18 16:59 Last Admin: 12/14/18 09:18 Dose: 100 mls/hr Lactated Ringer's (Lactated Ringers Solution) 1,000 ml in 1,000 mls @ 125 mls/ hr IV ASDIR [facility] Last Admin: 12/14/18 11:34 Dose: Not Given Insulin Aspart (Novolog Vial Sliding Scale -) 1 vial SQ BIDAC [facility]; Protocol Last Admin: 12/14/18 06:52 Dose: 2 units Lisinopril (Prinivil) 20 mg PO DAILY [facility] Last Admin: 12/14/18 09:18 Dose: 20 mg Ondansetron HCl (Zofran Injection) 4 mg IVPUSH Q6H PRN PRN Reason: NAUSEA Polyethylene Glycol (Miralax (For Daily Use) -) 17 gm PO DAILY PRN PRN Reason: CONSTIPATION Senna (Senna -) 2 tab PO HS PRN PRN Reason: CONSTIPATION Terazosin HCl (Hytrin -) 2 mg PO DAILY [facility] Last Admin: 12/14/18 09:18 Dose: 2 mg ASSESSMENT AND PLAN: Flat Back Syndrome s/p L3-L5 PLIF/Durotomy repair BPH - pain control - incentive spirometry - bowel regimen - d/c dennis when OOB - PO as tolerated - rehab/PT - DVT prophylaxis - can monitor on floor if ok with surgery
--- NOTE | 2018-12-14 13:28 | SURG ---
Surgery Awake Overnight Monitor Note Awake Overnight Monitor: Parker Walden PA-C (Suzy) Date of Service: 12/13/18 Diagnosis: Disc prolapse of L3-L4, L4-L5 with associated spinal stenosis and segmentary instability with kyphosis. Procedure: 1. Laminectomy of L3-L4 with undercutting facetectomy. 2. Diskectomy of L3-L4, L4-L5. 3. Posterior lumbar interbody fusion L3-L4, L4-L5 with autologous bone and Fortilink intradiscal biomechanical device (interbody) L3-L4, L4-L5. 4. Pedicle screw instrumentation of L3, L4, and L5. 5. Pressurized arthrodesis of L3, L4, L5 6. Bone aspirate concentrate. 7. Autologous bone graft harvested with expansion of allograft. 8. Biplanar fluoroscopy and intraoperative neural monitoring. I was present for the entirety of the operative procedure. For further detail, please refer to operative report. Visit type - Case Type Case Type: Scheduled - Emergency Emergency Visit: No - New patient This patient is new to me today: Yes Date on this admission: 12/14/18 - Critical Care Critical Care patient: No
[2018-12-15] MEDS ORDERED: LACTATED RINGERS SOLUTION 1,000 ML/1,000 ML INFUS.BAG IV SCH (02:59)
[2018-12-15] MEDS ORDERED: HYDROmorphone HCl 2 MG/ML VIAL IVPUSH PRN (02:59)
[2018-12-15] MEDS ORDERED: diphenhydrAMINE HCL 25 MG CAPSULE (FP) PO PRN (02:59)
[2018-12-15] MEDS ORDERED: ACETAMINOPHEN 1000 MG/100 ML VIAL (NON FORMULARY) IVPB PRN (02:59)
[2018-12-15] MEDS ORDERED: ONDANSETRON 4 MG/2 ML VIAL IVPUSH PRN (02:59)
[2018-12-15] MEDS: DOCUSATE SODIUM 100 MG CAPSULE (FP) PO SCH ×3 (05:47→21:26)
[2018-12-15] MEDS: INSULIN SLIDING SCALE (NOVOLOG) 1 VIAL SQ SCH ×2 (06:16→18:13)
[2018-12-15 07:22] LABS: HEMATOCRIT 37.8 % (35.4-49); HEMOGLOBIN 13.5 GM/dL (11.7-16.9); MCH 31.5 pg (25.7-33.7); MCHC 35.6 g/dl (32.0-35.9); MEAN CELL VOLUME 88.3 fl (80-96); MEAN PLT VOLUME 7.5 fl (7.5-11.1); PLATELET COUNT 155 K/MM3 (134-434); RBC 4.28 M/mm3 (4.00-5.60); RDW 13.1 % (11.9-15.9)
[2018-12-15] MEDS ORDERED: oxyCODONE HCL 5 MG TABLET PO PRN ×2 (08:07)
[2018-12-15] MEDS ORDERED: morphine SULFATE 4 MG/ML VIAL IVPUSH PRN (08:15)
[2018-12-15 08:18] LABS: ANION GAP 6 MMOL/L (8-16); BLOOD UREA NITROGEN 10 mg/dL (7-18); CALCIUM 8.7 mg/dL (8.5-10.1); CHLORIDE 98 mmol/L (98-107); CO2 28 mmol/L (21-32); CREATININE 0.7 mg/dL (0.55-1.3); GLUCOSE,RANDOM 158 mg/dL (74-106); MAGNESIUM 1.7 mg/dL (1.8-2.4); PHOSPHOROUS 2.9 mg/dL (2.5-4.9); POTASSIUM 3.9 mmol/L (3.5-5.1); SODIUM 132 mmol/L (136-145)
[2018-12-15] MEDS: SIMETHICONE 80 MG TAB.CHEW (FP) PO PRN ×2 (08:32→18:36)
--- NOTE | 2018-12-15 09:30 | PN ---
Progress Note (short form) - Note Progress Note: surgery POD #2 L2-S1 PLIF patient seen and examined in the bedside c/o back pain with movement. Patient denies any leg pain or numbness. He is tolerating his diet and denies any Fever, Chills, H/A, blurred vision, n/v/d, CP or SOB. Vital Signs Temp 98.2 F 12/15/18 08:40 Pulse 92 H 12/15/18 08:40 Resp 18 12/15/18 08:40 BP 140/76 12/15/18 08:40 Pulse Ox 98 12/14/18 22:00 Intake & Output 12/14/12/14/18 12/15/18 11:59 23:59 11:59 Intake Total 1250 1770 1300 Output Total 2100 2300 750 Balance -850 -530 550 Weight 179 lb 7.3 oz Intake: IV 1250 1250 1200 LACTATED RINGERS SOLUTION 1250 1250 1,000 ml In 1,000 ml @ 125 mls/hr IV ASDIR LETY Rx#:[id number] LACTATED RINGERS SOLUTION 1200 1,000 ml In 1,000 ml @ 125 mls/hr IV ASDIR LETY Rx#:[id number] IVPB 100 Oral 520 Output: Urine 2100 2300 750 Addison 2100 2300 750 Other: Voiding Method Indwelling Catheter Indwelling Catheter Bowel Movement Yes Weight Measurement Method Built in [facility] CBC, BMP 12/15/18 06:45 12/15/18 06:45 PE: A&Ox3, NAD unlabored resp on RA back dressing c/d/i with surrounding tissue in tact, no evidence of collection or d/c b/l LE compartments soft, supple and non-tender with +2 DP pulses and 5/5 dorsi/ plantar flexion Problem List - Problems (1) S/P lumbar spinal fusion Assessment/Plan: POD #2 L2-S1 PLIF doing well with dural tear, currently asymptomatic. 1) OOB with PT today 2) DVT and GI prophylaxis 3) Pain control- pain meds have been modified 4) encourage IS Evaluation and plan discussed with Dr Santos Code(s): Z98.1 - ARTHRODESIS STATUS
[2018-12-15] MEDS ORDERED: PT OWN MED DRAWER 7, Y5N ONE ×2 (09:46→12:28)
[2018-12-15] MEDS: FOLIC ACID 1 MG TABLET (FP) PO SCH (09:47)
[2018-12-15] MEDS: LISINOPRIL 20 MG TABLET (FP) PO SCH (09:47)
[2018-12-15] MEDS: FERROUS SO4 325 MG TABLET (FP) PO SCH (09:47)
[2018-12-15] MEDS: TERAZOSIN HCL 1 MG CAPSULE PO SCH (09:48)
[2018-12-15] MEDS: oxyCODONE HCL 10 MG SUSTAINED ACTING TABLET PO SCH ×2 (12:32→21:26)
--- NOTE | 2018-12-15 12:55 | PN ---
Physical Exam: SUBJECTIVE: Patient seen and examined at the bedside. laying in bed states he is still having pain. was able to sit at edge of bed with PT OBJECTIVE: Vital Signs Period Temp Pulse Resp BP Sys/Mathews Pulse Ox Last 24 Hr 98.2 F-99.4 F 92-98 12-18 115-154/65-89 98 GENERAL: The patient is awake, alert, and fully oriented, in no acute distress. HEAD: Normal with no signs of trauma. EYES: PERRL, extraocular movements intact, sclera anicteric, conjunctiva clear. No ptosis. ENT: Ears normal, nares patent, oropharynx clear without exudates, moist mucous membranes. NECK: Trachea midline, full range of motion, supple. LUNGS: Breath sounds equal, clear to auscultation anteriorly. HEART: Regular rate and rhythm ABDOMEN: Soft, nontender, nondistended, normoactive bowel sounds, EXTREMITIES: no edema. soft calves, no pain. on SCDs NEUROLOGICAL:normal speech, gait not observed. PSYCH: Normal mood, normal affect. Laboratory Results - last 24 hr 12/14/18 12/15/18 12/15/18 17:38 05:50 06:45 WBC 12.0 H RBC 4.28 Hgb 13.5 Hct 37.8 MCV 88.3 MCH 31.5 MCHC 35.6 RDW 13.1 Plt Count 155 MPV 7.5 Sodium Potassium Chloride Carbon Dioxide Anion Gap BUN Creatinine Creat Clearance w eGFR POC Glucometer 137 160 Random Glucose Calcium Phosphorus Magnesium 12/15/18 06:45 WBC RBC Hgb Hct MCV MCH MCHC RDW Plt Count MPV Sodium 132 L Potassium 3.9 Chloride 98 Carbon Dioxide 28 Anion Gap 6 L BUN 10 Creatinine 0.7 Creat Clearance w eGFR 112.83 POC Glucometer Random Glucose 158 H Calcium 8.7 Phosphorus 2.9 Magnesium 1.7 L Active Medications Generic Name Dose Route Start Last Admin Trade Name Freq PRN Reason Stop Dose Admin Acetaminophen 1,000 mg 12/15/18 02:59 12/15/18 08:31 Ofirmev Injection - IVPB 1,000 mg Q6H PRN Administration PAIN OR FEVER Diphenhydramine HCl 25 mg 12/15/18 02:59 Benadryl - PO Q6H PRN FOR ITCHING Docusate Sodium 100 mg 12/15/18 06:00 12/15/18 05:47 Colace - PO 100 mg TID LETY Administration Ferrous Sulfate 325 mg 12/15/18 10:00 12/15/18 09:47 Feosol - PO 325 mg DAILY LETY Administration Folic Acid 1 mg 12/15/18 10:00 12/15/18 09:47 Folic Acid - PO 1 mg DAILY LETY Administration Insulin Aspart 1 vial 12/15/18 07:00 12/15/18 06:16 Novolog Vial Sliding Scale - SQ 2 units BIDAC LETY Administration Protocol Lisinopril 20 mg 12/15/18 10:00 12/15/18 09:47 Prinivil PO 20 mg DAILY LETY Administration Morphine Sulfate 3 mg 12/15/18 08:15 Morphine Sulfate IVPUSH Q4H PRN breakthrough pain Ondansetron HCl 4 mg 12/15/18 02:59 Zofran Injection IVPUSH Q6H PRN NAUSEA Oxycodone HCl 5 mg 12/15/18 08:07 Roxicodone - PO Q4H PRN PAIN LEVEL 1-5 Oxycodone HCl 10 mg 12/15/18 08:07 Roxicodone - PO Q4H PRN PAIN LEVEL 6-10 Oxycodone HCl 10 mg 12/15/18 12:00 12/15/18 12:32 Oxycontin - PO 10 mg BID LETY Administration Polyethylene Glycol 17 gm 12/15/18 02:59 Miralax (For Daily Use) - PO DAILY PRN CONSTIPATION Senna 2 tab 12/15/18 02:59 Senna - PO HS PRN CONSTIPATION Simethicone 80 mg 12/15/18 08:04 12/15/18 08:32 Mylicon - PO 80 mg Q4H PRN Administration GAS Terazosin HCl 2 mg 12/15/18 10:00 12/15/18 09:48 Hytrin - PO 2 mg DAILY LETY Administration ASSESSMENT/PLAN: Patient is a 68 year old male with a significant past medical history of hypertension, dm, bph, chronicl lumbar spine pain. He is s/p L2-S1 Posterior Lumbar Interbody Fusion POD 2. Back surgery Pain management, oxycotin, oxycodone, morphine Post op antibiotics, bowel regimen, incentive spirometer physical therapy ordered monitor labs Hypertension. controlled On lisinopril, hytrin Endocrine diabetes on SS, mildly elevated add levemir if remains elevated currently has poor PO intake fen tolerating po monitor electrolytes diabetic diet prophy scds Visit type - Emergency Visit Emergency Visit: Yes ED Registration Date: 12/13/18 Care time: The patient presented to the Emergency Department on the above date and was hospitalized for further evaluation of their emergent condition. - New Patient This patient is new to me today: No - Critical Care Critical Care patient: No - Discharge Referral Referred to [facility] Med P.C.: No
--- NOTE | 2018-12-15 16:37 | PATH ---
Surgical Pathology Report Patient Name: REINA ROGER Med. Rec. #: [id number] /Age/Gender: 1950 (Age: 68) / M Account: [id number] Location: [facility] MED/SURG Taken: 12/13/2018 Received: 12/14/2018 Reported: 12/15/2018 Physicians: Uzair Santos M.D. Specimen(s) Received DISC L3-L5 Clinical History flat back syndrome Final Diagnosis L3-L5, DISC, DISCECTOMY: FRAGMENTS OF BONE AND CARTILAGE WITH DEGENERATIVE CHANGE. Electronically Signed Crystal Reagan M.D. Gross Description Received in formalin, labeled "L3-L5 disc" are multiple fibrotic, cartilaginous and bone tissue measuring 3 x 3 x 1 cm. in aggregate. Wirer Helper sections are submitted in one cassette after decalcification. VALERIE/12/14/2018 meryl/12/14/2018
--- NOTE | 2018-12-15 17:46 | PN ---
Progress Note (short form) - Note Progress Note: POD#2 C/O incisional pain No leg pain O/E Vitals all stable CVS Stable ` RESP A/E equal bilat ABD Soft but distended No flatus Neuro At baseline Wound dry Assess Doing well PLAN Pain Mx PT Mobilize D/C planning Stert soft diet when appatite has improved ?tomorrow
[2018-12-15] MEDS ORDERED: INSULIN (NOVOLOG) ASPART 100 UNITS/ML 10ML VIAL ONE (18:10)
[2018-12-15] MEDS: KETOROLAC TROMETHAMINE 30 MG/1 ML VIAL IVPUSH SCH (18:25)
[2018-12-15] MEDS: POLYETHYLENE GLYCOL 3350 119 GM BTL PO PRN (18:34)
[2018-12-15] MEDS: SENNOSIDES 8.6MG TABLET (FP) PO PRN (21:27)
[2018-12-16] MEDS: KETOROLAC TROMETHAMINE 30 MG/1 ML VIAL IVPUSH SCH ×3 (01:52→17:37)
[2018-12-16] MEDS: INSULIN SLIDING SCALE (NOVOLOG) 1 VIAL SQ SCH ×2 (06:41→17:38)
[2018-12-16] MEDS: DOCUSATE SODIUM 100 MG CAPSULE (FP) PO SCH ×3 (06:41→22:21)
[2018-12-16 09:43] LABS: BASO % 0.4 % (0-2.0); EOS % 3.8 % (0-4.5); HEMATOCRIT 37.3 % (35.4-49); HEMOGLOBIN 13.5 GM/dL (11.7-16.9); LYMPH % 17.1 % (8-40); MCH 32.4 pg (25.7-33.7); MCHC 36.1 g/dl (32.0-35.9); MEAN CELL VOLUME 89.7 fl (80-96); MEAN PLT VOLUME 7.9 fl (7.5-11.1); MONO % 6.9 % (3.8-10.2); NEUT % 71.8 % (42.8-82.8); PLATELET COUNT 161 K/MM3 (134-434); RBC 4.16 M/mm3 (4.00-5.60); RDW 13.1 % (11.9-15.9); WHITE BLOOD COUNT 10.7 K/mm3 (4.0-10.0)
[2018-12-16] MEDS ORDERED: PT OWN MED DRAWER 7, Y5N ONE (11:12)
[2018-12-16 11:13] LABS: ALBUMIN 2.7 g/dl (3.4-5.0); ALK PHOS 76 U/L (45-117); ANION GAP 6 MMOL/L (8-16); BLOOD UREA NITROGEN 16 mg/dL (7-18); CALCIUM 8.6 mg/dL (8.5-10.1); CHLORIDE 100 mmol/L (98-107); CO2 31 mmol/L (21-32); CREATININE 0.8 mg/dL (0.55-1.3); GLUCOSE,RANDOM 116 mg/dL (74-106); POTASSIUM 3.9 mmol/L (3.5-5.1); SGOT/AST 23 U/L (15-37); SGPT/ALT 17 U/L (13-61); SODIUM 137 mmol/L (136-145); TOT PROT 5.8 g/dl (6.4-8.2)
[2018-12-16] MEDS: LISINOPRIL 20 MG TABLET (FP) PO SCH (11:19)
[2018-12-16] MEDS: oxyCODONE HCL 10 MG SUSTAINED ACTING TABLET PO SCH ×2 (11:19→22:21)
[2018-12-16] MEDS: FERROUS SO4 325 MG TABLET (FP) PO SCH (11:19)
[2018-12-16] MEDS: FOLIC ACID 1 MG TABLET (FP) PO SCH (11:19)
[2018-12-16] MEDS: TERAZOSIN HCL 1 MG CAPSULE PO SCH (11:20)
[2018-12-16] MEDS: POLYETHYLENE GLYCOL 3350 119 GM BTL PO PRN (11:21)
--- NOTE | 2018-12-16 12:26 | PN ---
Physical Exam: SUBJECTIVE: Patient seen and examined at the bedside. ambulating better with PT today. pain improving. OBJECTIVE: discharge planning to rehab. awaiting rehab placement with ins. Vital Signs Period Temp Pulse Resp BP Sys/Mathews Pulse Ox Last 24 Hr 98.4 F-99.8 F 88-98 18-18 111-135/66-78 96 GENERAL: The patient is awake, alert, and fully oriented, in no acute distress. HEAD: Normal with no signs of trauma. EYES: PERRL, extraocular movements intact, sclera anicteric, conjunctiva clear. No ptosis. ENT: Ears normal, nares patent, oropharynx clear without exudates, moist mucous membranes. NECK: Trachea midline, full range of motion, supple. LUNGS: Breath sounds equal, clear to auscultation anteriorly. HEART: Regular rate and rhythm ABDOMEN: Soft, nontender, nondistended, normoactive bowel sounds, EXTREMITIES: no edema. soft calves, no pain. on SCDs NEUROLOGICAL:normal speech, gait not observed. PSYCH: Normal mood, normal affect. Laboratory Results - last 24 hr 12/15/18 12/15/18 12/16/18 18:08 20:40 06:39 WBC RBC Hgb Hct MCV MCH MCHC RDW Plt Count MPV Absolute Neuts (auto) Neutrophils % Lymphocytes % Monocytes % Eosinophils % Basophils % Nucleated RBC % Sodium Potassium Chloride Carbon Dioxide Anion Gap BUN Creatinine Creat Clearance w eGFR POC Glucometer 157 148 134 Random Glucose Calcium Total Bilirubin AST ALT Alkaline Phosphatase Total Protein Albumin 12/16/18 12/16/18 08:42 08:42 WBC 10.7 H RBC 4.16 Hgb 13.5 Hct 37.3 MCV 89.7 MCH 32.4 MCHC 36.1 H RDW 13.1 Plt Count 161 MPV 7.9 Absolute Neuts (auto) 7.7 Neutrophils % 71.8 Lymphocytes % 17.1 Monocytes % 6.9 Eosinophils % 3.8 Basophils % 0.4 Nucleated RBC % 0 Sodium 137 Potassium 3.9 Chloride 100 Carbon Dioxide 31 Anion Gap 6 L BUN 16 Creatinine 0.8 Creat Clearance w eGFR 96.72 POC Glucometer Random Glucose 116 H Calcium 8.6 Total Bilirubin 1.0 AST 23 ALT 17 Alkaline Phosphatase 76 Total Protein 5.8 L Albumin 2.7 L Active Medications Generic Name Dose Route Start Last Admin Trade Name Freq PRN Reason Stop Dose Admin Acetaminophen 1,000 mg 12/15/18 02:59 12/15/18 08:31 Ofirmev Injection - IVPB 1,000 mg Q6H PRN Administration PAIN OR FEVER Diphenhydramine HCl 25 mg 12/15/18 02:59 Benadryl - PO Q6H PRN FOR ITCHING Docusate Sodium 100 mg 12/15/18 06:00 12/16/18 06:41 Colace - PO 100 mg TID LETY Administration Ferrous Sulfate 325 mg 12/15/18 10:00 12/16/18 11:19 Feosol - PO 325 mg DAILY LETY Administration Folic Acid 1 mg 12/15/18 10:00 12/16/18 11:19 Folic Acid - PO 1 mg DAILY [facility] Administration Insulin Aspart 1 vial 12/15/18 07:00 12/16/18 06:41 Novolog Vial Sliding Scale - SQ Not Given BIDAC [facility] Protocol Ketorolac Tromethamine 30 mg 12/15/18 18:00 12/16/18 11:20 Toradol Injection - IVPUSH 12/20/18 17:59 30 mg Q8H-IV LETY Administration Lisinopril 20 mg 12/15/18 10:00 12/16/18 11:19 Prinivil PO 20 mg DAILY [facility] Administration Morphine Sulfate 3 mg 12/15/18 08:15 Morphine Sulfate IVPUSH Q4H PRN breakthrough pain Ondansetron HCl 4 mg 12/15/18 02:59 Zofran Injection IVPUSH Q6H PRN NAUSEA Oxycodone HCl 5 mg 12/15/18 08:07 Roxicodone - PO Q4H PRN PAIN LEVEL 1-5 Oxycodone HCl 10 mg 12/15/18 08:07 12/16/18 06:41 Roxicodone - PO 10 mg Q4H PRN Administration PAIN LEVEL 6-10 Oxycodone HCl 10 mg 12/15/18 12:00 12/16/18 11:19 Oxycontin - PO 10 mg BID LETY Administration Polyethylene Glycol 17 gm 12/15/18 02:59 12/16/18 11:21 Miralax (For Daily Use) - PO 17 gm DAILY PRN Administration CONSTIPATION Senna 2 tab 12/15/18 02:59 12/15/18 21:27 Senna - PO 2 tab HS PRN Administration CONSTIPATION Simethicone 80 mg 12/15/18 08:04 12/15/18 18:36 Mylicon - PO 80 mg Q4H PRN Administration GAS Terazosin HCl 2 mg 12/15/18 10:00 12/16/18 11:20 Hytrin - PO 2 mg DAILY LETY Administration ASSESSMENT/PLAN: Patient is a 68 year old male with a significant past medical history of hypertension, diabetes, bph, chronic lumbar spine pain. He is s/p L2-S1 Posterior Lumbar Interbody Fusion POD 3. Overall feels and looks better and able to mobilize with PT. Back surgery Pain management, oxycotin, oxycodone. continue bowel regimen, incentive spirometer participating with PT today, mobilizing more monitor labs daily. Card: Hypertension. controlled On lisinopril, hytrin Endocrine diabetes on SS, more controlled blood sugars. tolerating diabetic diet. fen tolerating po monitor electrolytes diabetic diet prophy scds Visit type - Emergency Visit Emergency Visit: Yes ED Registration Date: 12/13/18 Care time: The patient presented to the Emergency Department on the above date and was hospitalized for further evaluation of their emergent condition. - New Patient This patient is new to me today: No - Critical Care Critical Care patient: No - Discharge Referral Referred to [facility] Med P.C.: No
--- NOTE | 2018-12-16 13:41 | PN ---
Progress Note (short form) - Note Progress Note: POD #3 L2-S1 PLIF Patient seen and examined. States he feels slightly better today as compared with yesterday. States he has not been oob ambulating yet, PT note reports pt ambulated 60 feet yesterday without issue. Reports some dizziness with sitting up in bed yesterday. Today states he has no dizziness or headache. Is ready and willing to get oob and ambulate. Tolerating diet, voiding without issue, no BM yet. Denies fever, Chills, H/A, blurred vision, n/v/d, CP or SOB, motor/sensory deficits. Vital Signs Temp 98.6 F 12/16/18 06:00 Pulse 88 12/16/18 06:00 Resp 18 12/16/18 06:00 BP 126/78 12/16/18 06:00 Pulse Ox 96 12/15/18 21:00 Intake & Output 12/15/18 12/16/18 12/16/18 23:59 11:59 23:59 Intake Total 250 250 Output Total 800 300 Balance -550 -50 Intake: Oral 250 250 Output: Urine 800 300 Void 800 300 Other: Voiding Method Urinal Urinal # Unmeasured Voids Void 1 CBC, BMP 12/16/18 08:42 12/16/18 08:42 PE: Gen: A&Ox3, NAD Resp: unlabored resp on RA Back: back dressing c/d/i with surrounding tissue in tact, no evidence of collection or d/c Neuro: b/l le's 5/5 dorsi/plantar flexion, SILT, b/l LE compartments soft, supple and non-tender with +2 DP pulses A/P: 68 y/o M w/ pmhx HTN, NIDDM, chronic back pain now POD 3, s/p L3-L4, L4-L5 discectomy and PLIF w/ incidental durotomy. Afebrile, VSS. Labs stable, neuro exam stable. OOB with PT DVT and GI prophylaxis Pain control as ordered IS encouraged Bowel regimen above d/w attending Dr Santos
[2018-12-17] MEDS: KETOROLAC TROMETHAMINE 30 MG/1 ML VIAL IVPUSH SCH ×3 (01:40→17:42)
[2018-12-17] MEDS: DOCUSATE SODIUM 100 MG CAPSULE (FP) PO SCH ×3 (06:25→21:50)
[2018-12-17] MEDS: INSULIN SLIDING SCALE (NOVOLOG) 1 VIAL SQ SCH ×2 (06:27→17:41)
[2018-12-17 07:36] LABS: BASO % 0.7 % (0-2.0); HEMATOCRIT 34.6 % (35.4-49); HEMOGLOBIN 12.5 GM/dL (11.7-16.9); LYMPH % 23.8 % (8-40); MCH 32.5 pg (25.7-33.7); MEAN CELL VOLUME 90.2 fl (80-96); MEAN PLT VOLUME 7.5 fl (7.5-11.1); NEUT % 58.5 % (42.8-82.8); PLATELET COUNT 177 K/MM3 (134-434); RBC 3.84 M/mm3 (4.00-5.60); RDW 12.7 % (11.9-15.9); WHITE BLOOD COUNT 8.1 K/mm3 (4.0-10.0)
[2018-12-17 08:30] LABS: ALBUMIN 2.6 g/dl (3.4-5.0); ALK PHOS 70 U/L (45-117); ANION GAP 6 MMOL/L (8-16); BILIRUBIN,TOTAL 0.7 mg/dL (0.2-1); BLOOD UREA NITROGEN 24 mg/dL (7-18); CALCIUM 8.4 mg/dL (8.5-10.1); CHLORIDE 99 mmol/L (98-107); CO2 31 mmol/L (21-32); CREATININE 0.9 mg/dL (0.55-1.3); GLUCOSE,RANDOM 127 mg/dL (74-106); POTASSIUM 3.7 mmol/L (3.5-5.1); SGOT/AST 14 U/L (15-37); SGPT/ALT 15 U/L (13-61); SODIUM 136 mmol/L (136-145); TOT PROT 5.6 g/dl (6.4-8.2)
[2018-12-17] MEDS ORDERED: BISACODYL 10 MG SUPP.RECT RC ONE (08:48)
--- NOTE | 2018-12-17 08:48 | PN ---
Progress Note (short form) - Note Progress Note: POD #4 L2-S1 PLIF Patient seen and examined. States he is doing "okay" this morning. Has some pain with movement, is controlled with pain regimen. Reports ambulating halls with PT twice yesterday. Does not feel ready to go home, states he is concerned about pain. Tolerating diet, voiding without issue, no BM yet, reports last BM was last Thursday. Denies fever, Chills, H/A, blurred vision, n/v/d, CP or SOB, motor/sensory deficits. Vital Signs Temp 98.0 F 12/17/18 06:00 Pulse 73 12/17/18 06:00 Resp 18 12/17/18 06:00 BP 112/64 12/17/18 06:00 Pulse Ox 96 12/16/18 21:00 Intake & Output 12/16/18 12/16/18 12/17/18 11:59 23:59 11:59 Intake Total 250 Output Total 300 400 300 Balance -50 -400 -300 Intake: Oral 250 Output: Urine 300 400 300 Void 300 400 300 Other: Voiding Method Urinal Urinal # Unmeasured Voids Void 1 Bowel Movement No No CBC, BMP 12/17/18 06:30 12/17/18 06:30 PE: Gen: A&Ox3, NAD Resp: unlabored resp on RA Abdo: soft, mild distention, no ttp, no rebound no guarding Back: back dressing c/d/i with surrounding tissue in tact, no evidence of collection or d/c Neuro: b/l le's 5/5 dorsi/plantar flexion, SILT, b/l LE compartments soft, supple and non-tender with +2 DP pulses A/P: 68 y/o M w/ pmhx HTN, NIDDM, chronic back pain now POD 4, s/p L3-L4, L4-L5 discectomy and PLIF w/ incidental durotomy. Afebrile, VSS. Labs stable, neuro exam stable. Dulcolax suppository ordered, Miralax changed to scheduled daily OOB with PT DVT and GI prophylaxis Pain control as ordered IS encouraged Bowel regimen above d/w attending Dr Santos
[2018-12-17] MEDS ORDERED: PT OWN MED DRAWER 7, Y5N ONE (10:03)
[2018-12-17] MEDS: oxyCODONE HCL 10 MG SUSTAINED ACTING TABLET PO SCH ×2 (10:43→21:50)
[2018-12-17] MEDS: FERROUS SO4 325 MG TABLET (FP) PO SCH (10:44)
[2018-12-17] MEDS: LISINOPRIL 20 MG TABLET (FP) PO SCH (10:44)
[2018-12-17] MEDS: FOLIC ACID 1 MG TABLET (FP) PO SCH (10:44)
[2018-12-17] MEDS: TERAZOSIN HCL 1 MG CAPSULE PO SCH (10:44)
[2018-12-17] MEDS: POLYETHYLENE GLYCOL 3350 119 GM BTL PO SCH (10:45)
--- NOTE | 2018-12-17 10:48 | PN ---
Physical Exam: SUBJECTIVE: Patient seen and examined OBJECTIVE: Vital Signs Period Temp Pulse Resp BP Sys/Mathews Pulse Ox Last 24 Hr 98.0 F-98.7 F 73-89 18-18 112-160/56-64 96 GENERAL: The patient is awake, alert, and fully oriented, in no acute distress. HEAD: Normal with no signs of trauma. EYES: PERRL, extraocular movements intact, sclera anicteric, conjunctiva clear. No ptosis. ENT: Ears normal, nares patent, oropharynx clear without exudates, moist mucous membranes. NECK: Trachea midline, full range of motion, supple. LUNGS: Breath sounds equal, clear to auscultation anteriorly. HEART: Regular rate and rhythm ABDOMEN: Soft, nontender, nondistended, normoactive bowel sounds, EXTREMITIES: no edema. soft calves, no pain. on SCDs NEUROLOGICAL:normal speech, gait not observed. PSYCH: Normal mood, normal affect. Laboratory Results - last 24 hr 12/16/18 12/16/18 12/17/18 08:42 17:36 06:26 WBC RBC Hgb Hct MCV MCH MCHC RDW Plt Count MPV Absolute Neuts (auto) Neutrophils % Lymphocytes % Monocytes % Eosinophils % Basophils % Nucleated RBC % Sodium 137 Potassium 3.9 Chloride 100 Carbon Dioxide 31 Anion Gap 6 L BUN 16 Creatinine 0.8 Creat Clearance w eGFR 96.72 POC Glucometer 128 133 Random Glucose 116 H Calcium 8.6 Total Bilirubin 1.0 AST 23 ALT 17 Alkaline Phosphatase 76 Total Protein 5.8 L Albumin 2.7 L 12/17/18 12/17/18 06:30 06:30 WBC 8.1 RBC 3.84 L Hgb 12.5 Hct 34.6 L MCV 90.2 MCH 32.5 MCHC 36.0 H RDW 12.7 Plt Count 177 MPV 7.5 Absolute Neuts (auto) 4.7 Neutrophils % 58.5 Lymphocytes % 23.8 D Monocytes % 9.0 Eosinophils % 8.0 H D Basophils % 0.7 Nucleated RBC % 0 Sodium 136 Potassium 3.7 Chloride 99 Carbon Dioxide 31 Anion Gap 6 L BUN 24 H Creatinine 0.9 Creat Clearance w eGFR 84.43 POC Glucometer Random Glucose 127 H Calcium 8.4 L Total Bilirubin 0.7 AST 14 L ALT 15 Alkaline Phosphatase 70 Total Protein 5.6 L Albumin 2.6 L Active Medications Generic Name Dose Route Start Last Admin Trade Name Freq PRN Reason Stop Dose Admin Acetaminophen 1,000 mg 12/15/18 02:59 12/15/18 08:31 Ofirmev Injection - IVPB 1,000 mg Q6H PRN Administration PAIN OR FEVER Diphenhydramine HCl 25 mg 12/15/18 02:59 Benadryl - PO Q6H PRN FOR ITCHING Docusate Sodium 100 mg 12/15/18 06:00 12/17/18 06:25 Colace - PO 100 mg TID LETY Administration Ferrous Sulfate 325 mg 12/15/18 10:00 12/17/18 10:44 Feosol - PO 325 mg DAILY LETY Administration Folic Acid 1 mg 12/15/18 10:00 12/17/18 10:44 Folic Acid - PO 1 mg DAILY LETY Administration Insulin Aspart 1 vial 12/15/18 07:00 12/17/18 06:27 Novolog Vial Sliding Scale - SQ Not Given BIDAC [facility] Protocol Ketorolac Tromethamine 30 mg 12/15/18 18:00 12/17/18 10:07 Toradol Injection - IVPUSH 12/20/18 17:59 30 mg Q8H-IV LETY Administration Lisinopril 20 mg 12/15/18 10:00 12/17/18 10:44 Prinivil PO 20 mg DAILY LETY Administration Ondansetron HCl 4 mg 12/15/18 02:59 Zofran Injection IVPUSH Q6H PRN NAUSEA Oxycodone HCl 10 mg 12/15/18 08:07 12/16/18 06:41 Roxicodone - PO 10 mg Q4H PRN Administration PAIN LEVEL 6-10 Oxycodone HCl 10 mg 12/15/18 12:00 12/17/18 10:43 Oxycontin - PO 10 mg BID LETY Administration Polyethylene Glycol 17 gm 12/17/18 10:00 12/17/18 10:45 Miralax (For Daily Use) - PO 17 grams DAILY LETY Administration Senna 2 tab 12/15/18 02:59 12/15/18 21:27 Senna - PO 2 tab HS PRN Administration CONSTIPATION Simethicone 80 mg 12/15/18 08:04 12/15/18 18:36 Mylicon - PO 80 mg Q4H PRN Administration GAS Terazosin HCl 2 mg 12/15/18 10:00 12/17/18 10:44 Hytrin - PO 2 mg DAILY LETY Administration ASSESSMENT/PLAN: Patient is a 68 year old male with a significant past medical history of hypertension, diabetes, bph, chronic lumbar spine pain. He is s/p L2-S1 Posterior Lumbar Interbody Fusion POD 4. Overall feels and looks better and able to mobilize with PT. awaiting placement to rehab. Back surgery Pain management, oxycotin, oxycodone. continue bowel regimen, incentive spirometer awaiting rehab. Card: Hypertension. controlled On lisinopril, hytrin Endocrine diabetes on SS, more controlled blood sugars. tolerating diabetic diet. fen tolerating po monitor electrolytes diabetic diet prophy scds Visit type - Emergency Visit Emergency Visit: Yes ED Registration Date: 12/13/18 Care time: The patient presented to the Emergency Department on the above date and was hospitalized for further evaluation of their emergent condition. - New Patient This patient is new to me today: No - Critical Care Critical Care patient: No - Discharge Referral Referred to [facility] Med P.C.: No
[2018-12-18] MEDS: KETOROLAC TROMETHAMINE 30 MG/1 ML VIAL IVPUSH SCH ×3 (01:35→19:17)
[2018-12-18] MEDS: DOCUSATE SODIUM 100 MG CAPSULE (FP) PO SCH ×3 (06:06→22:41)
[2018-12-18] MEDS: INSULIN SLIDING SCALE (NOVOLOG) 1 VIAL SQ SCH ×2 (06:08→19:14)
[2018-12-18] MEDS ORDERED: PT OWN MED DRAWER 7, Y5N ONE ×3 (09:22→22:00)
[2018-12-18] MEDS: FOLIC ACID 1 MG TABLET (FP) PO SCH (09:24)
[2018-12-18] MEDS: FERROUS SO4 325 MG TABLET (FP) PO SCH (09:24)
[2018-12-18] MEDS: oxyCODONE HCL 10 MG SUSTAINED ACTING TABLET PO SCH ×2 (09:24→22:40)
[2018-12-18] MEDS: LISINOPRIL 20 MG TABLET (FP) PO SCH (09:24)
[2018-12-18] MEDS: POLYETHYLENE GLYCOL 3350 119 GM BTL PO SCH (09:25)
[2018-12-18] MEDS: TERAZOSIN HCL 1 MG CAPSULE PO SCH (09:34)
[2018-12-18 11:18] LABS: BASO % 0.6 % (0-2.0); EOS % 6.2 % (0-4.5); HEMATOCRIT 37.8 % (35.4-49); HEMOGLOBIN 13.7 GM/dL (11.7-16.9); LYMPH % 19.7 % (8-40); MCH 32.5 pg (25.7-33.7); MCHC 36.3 g/dl (32.0-35.9); MEAN CELL VOLUME 89.7 fl (80-96); MEAN PLT VOLUME 7.4 fl (7.5-11.1); MONO % 6.4 % (3.8-10.2); NEUT % 67.1 % (42.8-82.8); PLATELET COUNT 221 K/MM3 (134-434); RBC 4.22 M/mm3 (4.00-5.60); RDW 12.8 % (11.9-15.9); WHITE BLOOD COUNT 8.5 K/mm3 (4.0-10.0)
[2018-12-18 11:44] LABS: ALK PHOS 82 U/L (45-117); ANION GAP 8 MMOL/L (8-16); BILIRUBIN,TOTAL 0.7 mg/dL (0.2-1); BLOOD UREA NITROGEN 20 mg/dL (7-18); CALCIUM 8.7 mg/dL (8.5-10.1); CHLORIDE 100 mmol/L (98-107); CO2 28 mmol/L (21-32); GLUCOSE,RANDOM 217 mg/dL (74-106); SGOT/AST 18 U/L (15-37); SGPT/ALT 20 U/L (13-61); SODIUM 136 mmol/L (136-145); TOT PROT 6.5 g/dl (6.4-8.2)
--- NOTE | 2018-12-18 12:29 | PN ---
Physical Exam: SUBJECTIVE: Patient seen and examined at the bedside. OBJECTIVE: feels well, in no acute distress. awaiting rehab Vital Signs Period Temp Pulse Resp BP Sys/Mathews Pulse Ox Last 24 Hr 98 F-98.5 F 73-84 20-20 125-127/66-77 96 GENERAL: The patient is awake, alert, and fully oriented, in no acute distress. HEAD: Normal with no signs of trauma. EYES: PERRL, extraocular movements intact, sclera anicteric, conjunctiva clear. No ptosis. ENT: Ears normal, nares patent, oropharynx clear without exudates, moist mucous membranes. NECK: Trachea midline, full range of motion, supple. LUNGS: Breath sounds equal, clear to auscultation anteriorly. HEART: Regular rate and rhythm ABDOMEN: Soft, nontender, nondistended, normoactive bowel sounds, EXTREMITIES: no edema. soft calves, no pain. on SCDs NEUROLOGICAL:normal speech, gait not observed. PSYCH: Normal mood, normal affect. Laboratory Results - last 12/17/18 12/18/18 12/18/18 17:40 06:07 10:50 WBC 8.5 RBC 4.22 Hgb 13.7 Hct 37.8 MCV 89.7 MCH 32.5 MCHC 36.3 H RDW 12.8 Plt Count 221 D MPV 7.4 L Absolute Neuts (auto) 5.7 Neutrophils % 67.1 Lymphocytes % 19.7 Monocytes % 6.4 Eosinophils % 6.2 H Basophils % 0.6 Nucleated RBC % 0 Sodium Potassium Chloride Carbon Dioxide Anion Gap BUN Creatinine Creat Clearance w eGFR POC Glucometer 142 127 Random Glucose Calcium Total Bilirubin AST ALT Alkaline Phosphatase Total Protein Albumin 12/18/18 10:50 WBC RBC Hgb Hct MCV MCH MCHC RDW Plt Count MPV Absolute Neuts (auto) Neutrophils % Lymphocytes % Monocytes % Eosinophils % Basophils % Nucleated RBC % Sodium 136 Potassium 4.0 Chloride 100 Carbon Dioxide 28 Anion Gap 8 BUN 20 H Creatinine 1.0 Creat Clearance w eGFR 74.76 POC Glucometer Random Glucose 217 H Calcium 8.7 Total Bilirubin 0.7 AST 18 ALT 20 Alkaline Phosphatase 82 Total Protein 6.5 Albumin 3.0 L Active Medications Generic Name Dose Route Start Last Admin Trade Name Freq PRN Reason Stop Dose Admin Acetaminophen 1,000 mg 12/15/18 02:59 12/15/18 08:31 Ofirmev Injection - IVPB 1,000 mg Q6H PRN Administration PAIN OR FEVER Diphenhydramine HCl 25 mg 12/15/18 02:59 Benadryl - PO Q6H PRN FOR ITCHING Docusate Sodium 100 mg 12/15/18 06:00 12/18/18 06:06 Colace - PO 100 mg TID LETY Administration Ferrous Sulfate 325 mg 12/15/18 10:00 12/18/18 09:24 Feosol - PO 325 mg DAILY LETY Administration Folic Acid 1 mg 12/15/18 10:00 12/18/18 09:24 Folic Acid - PO 1 mg DAILY LETY Administration Insulin Aspart 1 vial 12/15/18 07:00 12/18/18 06:08 Novolog Vial Sliding Scale - SQ Not Given BIDAC [facility] Protocol Ketorolac Tromethamine 30 mg 12/15/18 18:00 12/18/18 09:29 Toradol Injection - IVPUSH 12/20/18 17:59 30 mg Q8H-IV LETY Administration Lisinopril 20 mg 12/15/18 10:00 12/18/18 09:24 Prinivil PO 20 mg DAILY LETY Administration Ondansetron HCl 4 mg 12/15/18 02:59 Zofran Injection IVPUSH Q6H PRN NAUSEA Oxycodone HCl 10 mg 12/15/18 08:07 12/16/18 06:41 Roxicodone - PO 10 mg Q4H PRN Administration PAIN LEVEL 6-10 Oxycodone HCl 10 mg 12/15/18 12:00 12/18/18 09:24 Oxycontin - PO 10 mg BID LETY Administration Polyethylene Glycol 17 gm 12/17/18 10:00 12/18/18 09:25 Miralax (For Daily Use) - PO 17 grams DAILY LETY Administration Senna 2 tab 12/15/18 02:59 12/15/18 21:27 Senna - PO 2 tab HS PRN Administration CONSTIPATION Simethicone 80 mg 12/15/18 08:04 12/15/18 18:36 Mylicon - PO 80 mg Q4H PRN Administration GAS Terazosin HCl 2 mg 12/15/18 10:00 12/18/18 09:34 Hytrin - PO 2 mg DAILY LETY Administration ASSESSMENT/PLAN: Patient is a 68 year old male with a significant past medical history of hypertension, diabetes, bph, chronic lumbar spine pain. He is s/p L2-S1 Posterior Lumbar Interbody Fusion POD 5. Overall feels and looks better and able to mobilize with PT. awaiting placement to rehab. Back surgery Pain management, oxycotin, oxycodone. continue bowel regimen, incentive spirometer awaiting rehab. Card: Hypertension. controlled On lisinopril, hytrin Endocrine diabetes on SS, more controlled blood sugars. tolerating diabetic diet. fen tolerating po monitor electrolytes diabetic diet prophy scds Visit type - Emergency Visit Emergency Visit: Yes ED Registration Date: 12/13/18 Care time: The patient presented to the Emergency Department on the above date and was hospitalized for further evaluation of their emergent condition. - New Patient This patient is new to me today: No - Critical Care Critical Care patient: No - Discharge Referral Referred to [facility] Med P.C.: No
--- NOTE | 2018-12-18 15:49 | PN ---
Progress Note (short form) - Note Progress Note: Much improved Minimal back pain No leg pain MEdical status and vitals all stable Bandage dry Abdomen Soft but distended did pass stool ASSESS much improved PLAN Pain Mx PT mobilize ` D/C Planning for Thursday
[2018-12-18] MEDS: SIMETHICONE 80 MG TAB.CHEW (FP) PO PRN (19:23)
[2018-12-19] MEDS: KETOROLAC TROMETHAMINE 30 MG/1 ML VIAL IVPUSH SCH ×3 (01:49→18:04)
[2018-12-19] MEDS: INSULIN SLIDING SCALE (NOVOLOG) 1 VIAL SQ SCH ×2 (06:49→18:05)
[2018-12-19] MEDS: DOCUSATE SODIUM 100 MG CAPSULE (FP) PO SCH ×3 (06:51→22:10)
[2018-12-19] MEDS ORDERED: PT OWN MED DRAWER 7, Y5N ONE (09:16)
[2018-12-19] MEDS: FERROUS SO4 325 MG TABLET (FP) PO SCH (09:18)
[2018-12-19] MEDS: LISINOPRIL 20 MG TABLET (FP) PO SCH (09:18)
[2018-12-19] MEDS: FOLIC ACID 1 MG TABLET (FP) PO SCH (09:18)
[2018-12-19] MEDS: oxyCODONE HCL 10 MG SUSTAINED ACTING TABLET PO SCH ×2 (09:18→22:10)
[2018-12-19] MEDS: POLYETHYLENE GLYCOL 3350 119 GM BTL PO SCH (09:19)
[2018-12-19] MEDS: TERAZOSIN HCL 1 MG CAPSULE PO SCH (09:20)
[2018-12-19 11:02] LABS: BASO % 0.5 % (0-2.0); EOS % 7.7 % (0-4.5); HEMATOCRIT 33.3 % (35.4-49); HEMOGLOBIN 11.9 GM/dL (11.7-16.9); LYMPH % 21.2 % (8-40); MCH 31.4 pg (25.7-33.7); MCHC 35.7 g/dl (32.0-35.9); MEAN CELL VOLUME 87.9 fl (80-96); MEAN PLT VOLUME 7.1 fl (7.5-11.1); NEUT % 62.6 % (42.8-82.8); PLATELET COUNT 184 K/MM3 (134-434); RBC 3.79 M/mm3 (4.00-5.60); RDW 12.6 % (11.9-15.9); WHITE BLOOD COUNT 6.3 K/mm3 (4.0-10.0)
[2018-12-19 11:17] LABS: ALBUMIN 2.8 g/dl (3.4-5.0); ALK PHOS 76 U/L (45-117); ANION GAP 6 MMOL/L (8-16); BILIRUBIN,TOTAL 0.6 mg/dL (0.2-1); BLOOD UREA NITROGEN 18 mg/dL (7-18); CALCIUM 8.7 mg/dL (8.5-10.1); CHLORIDE 101 mmol/L (98-107); CO2 31 mmol/L (21-32); CREATININE 0.9 mg/dL (0.55-1.3); GLUCOSE,RANDOM 159 mg/dL (74-106); POTASSIUM 4.1 mmol/L (3.5-5.1); SGOT/AST 18 U/L (15-37); SGPT/ALT 20 U/L (13-61); SODIUM 138 mmol/L (136-145)
--- NOTE | 2018-12-19 22:10 | PN ---
Physical Exam: SUBJECTIVE: Patient seen and examined at the bedside. ambulating, pain controlled. no distress. OBJECTIVE: patient has been ambulating with a steady gait. rehab vs d/c home Vital Signs Period Temp Pulse Resp BP Sys/Mathews Pulse Ox Last 24 Hr 98 F-99.2 F 69-85 18-20 115-155/69-90 96 GENERAL: The patient is awake, alert, and fully oriented, in no acute distress. HEAD: Normal with no signs of trauma. EYES: PERRL, extraocular movements intact, sclera anicteric, conjunctiva clear. No ptosis. ENT: Ears normal, nares patent, oropharynx clear without exudates, moist mucous membranes. NECK: Trachea midline, full range of motion, supple. LUNGS: Breath sounds equal, clear to auscultation anteriorly. HEART: Regular rate and rhythm ABDOMEN: Soft, nontender, nondistended, normoactive bowel sounds, EXTREMITIES: no edema. soft calves, no pain. on SCDs NEUROLOGICAL:normal speech, gait not observed. PSYCH: Normal mood, normal affect. Laboratory Results - last 24 hr 12/19/18 12/19/18 12/19/18 06:05 10:30 10:30 WBC 6.3 RBC 3.79 L Hgb 11.9 Hct 33.3 L MCV 87.9 MCH 31.4 MCHC 35.7 RDW 12.6 Plt Count 184 MPV 7.1 L Absolute Neuts (auto) 4.0 Neutrophils % 62.6 Lymphocytes % 21.2 Monocytes % 8.0 Eosinophils % 7.7 H Basophils % 0.5 Nucleated RBC % 0 Sodium 138 Potassium 4.1 Chloride 101 Carbon Dioxide 31 Anion Gap 6 L BUN 18 Creatinine 0.9 Creat Clearance w eGFR 84.43 POC Glucometer 135 Random Glucose 159 H Calcium 8.7 Total Bilirubin 0.6 AST 18 ALT 20 Alkaline Phosphatase 76 Total Protein 6.0 L Albumin 2.8 L 12/19/18 17:20 WBC RBC Hgb Hct MCV MCH MCHC RDW Plt Count MPV Absolute Neuts (auto) Neutrophils % Lymphocytes % Monocytes % Eosinophils % Basophils % Nucleated RBC % Sodium Potassium Chloride Carbon Dioxide Anion Gap BUN Creatinine Creat Clearance w eGFR POC Glucometer 132 Random Glucose Calcium Total Bilirubin AST ALT Alkaline Phosphatase Total Protein Albumin Active Medications Generic Name Dose Route Start Last Admin Trade Name Freq PRN Reason Stop Dose Admin Diphenhydramine HCl 25 mg 12/15/18 02:59 Benadryl - PO Q6H PRN FOR ITCHING Docusate Sodium 100 mg 12/15/18 06:00 12/19/18 13:30 Colace - PO 100 mg TID LETY Administration Ferrous Sulfate 325 mg 12/15/18 10:00 12/19/18 09:18 Feosol - PO 325 mg DAILY LETY Administration Folic Acid 1 mg 12/15/18 10:00 12/19/18 09:18 Folic Acid - PO 1 mg DAILY LETY Administration Insulin Aspart 1 vial 12/15/18 07:00 12/19/18 18:05 Novolog Vial Sliding Scale - SQ Not Given [facility] Protocol Ketorolac Tromethamine 30 mg 12/15/18 18:00 12/19/18 18:04 Toradol Injection - IVPUSH 12/20/18 17:59 30 mg Q8H-IV LETY Administration Lisinopril 20 mg 12/15/18 10:00 12/19/18 09:18 Prinivil PO 20 mg DAILY LETY Administration Ondansetron HCl 4 mg 12/15/18 02:59 Zofran Injection IVPUSH Q6H PRN NAUSEA Oxycodone HCl 10 mg 12/15/18 12:00 12/19/18 09:18 Oxycontin - PO 10 mg BID LETY Administration Polyethylene Glycol 17 gm 12/17/18 10:00 12/19/18 09:19 Miralax (For Daily Use) - PO 17 grams DAILY LETY Administration Senna 2 tab 12/15/18 02:59 12/15/18 21:27 Senna - PO 2 tab HS PRN Administration CONSTIPATION Simethicone 80 mg 12/15/18 08:04 12/18/18 19:23 Mylicon - PO 80 mg Q4H PRN Administration GAS Terazosin HCl 2 mg 12/15/18 10:00 12/19/18 09:20 Hytrin - PO 2 mg DAILY LETY Administration ASSESSMENT/PLAN: Patient is a 68 year old male with a significant past medical history of hypertension, diabetes, bph, chronic lumbar spine pain. He is s/p L2-S1 Posterior Lumbar Interbody Fusion POD 6. Overall feels and looks better and able to mobilize with PT. awaiting placement to rehab. vs d/c home. Back surgery Pain management, oxycotin, oxycodone. continue bowel regimen, incentive spirometer awaiting rehab. vs d/c home Card: Hypertension. controlled On lisinopril, hytrin Endocrine diabetes on SS, more controlled blood sugars. tolerating diabetic diet. fen tolerating po monitor electrolytes diabetic diet prophy scds Visit type - Emergency Visit Emergency Visit: Yes ED Registration Date: 12/13/18 Care time: The patient presented to the Emergency Department on the above date and was hospitalized for further evaluation of their emergent condition. - New Patient This patient is new to me today: No - Critical Care Critical Care patient: No - Discharge Referral Referred to [facility] Med P.C.: No
[2018-12-19] MEDS: SENNOSIDES 8.6MG TABLET (FP) PO PRN (22:18)
[2018-12-20] MEDS: KETOROLAC TROMETHAMINE 30 MG/1 ML VIAL IVPUSH SCH ×2 (01:19→09:35)
[2018-12-20] MEDS: DOCUSATE SODIUM 100 MG CAPSULE (FP) PO SCH ×2 (05:53→13:53)
[2018-12-20] MEDS: INSULIN SLIDING SCALE (NOVOLOG) 1 VIAL SQ SCH (06:56)
[2018-12-20 08:27] LABS: BASO % 0.7 % (0-2.0); EOS % 8.7 % (0-4.5); HEMATOCRIT 33.6 % (35.4-49); HEMOGLOBIN 12.3 GM/dL (11.7-16.9); LYMPH % 22.2 % (8-40); MCH 32.3 pg (25.7-33.7); MCHC 36.7 g/dl (32.0-35.9); MEAN CELL VOLUME 88.2 fl (80-96); MEAN PLT VOLUME 7.4 fl (7.5-11.1); MONO % 8.5 % (3.8-10.2); NEUT % 59.9 % (42.8-82.8); PLATELET COUNT 190 K/MM3 (134-434); RBC 3.81 M/mm3 (4.00-5.60); RDW 12.3 % (11.9-15.9); WHITE BLOOD COUNT 6.8 K/mm3 (4.0-10.0)
[2018-12-20 08:50] LABS: ALBUMIN 2.7 g/dl (3.4-5.0); ALK PHOS 73 U/L (45-117); ANION GAP 5 MMOL/L (8-16); BILIRUBIN,TOTAL 0.7 mg/dL (0.2-1); BLOOD UREA NITROGEN 19 mg/dL (7-18); CALCIUM 8.5 mg/dL (8.5-10.1); CHLORIDE 102 mmol/L (98-107); CO2 29 mmol/L (21-32); CREATININE 0.8 mg/dL (0.55-1.3); GLUCOSE,RANDOM 132 mg/dL (74-106); POTASSIUM 4.4 mmol/L (3.5-5.1); SGOT/AST 19 U/L (15-37); SGPT/ALT 21 U/L (13-61); SODIUM 136 mmol/L (136-145); TOT PROT 5.8 g/dl (6.4-8.2)
[2018-12-20] MEDS: FOLIC ACID 1 MG TABLET (FP) PO SCH (09:29)
[2018-12-20] MEDS: FERROUS SO4 325 MG TABLET (FP) PO SCH (09:29)
[2018-12-20] MEDS ORDERED: PT OWN MED DRAWER 7, Y5N ONE (09:31)
[2018-12-20] MEDS: LISINOPRIL 20 MG TABLET (FP) PO SCH (09:32)
[2018-12-20] MEDS: TERAZOSIN HCL 1 MG CAPSULE PO SCH (09:32)
[2018-12-20] MEDS: oxyCODONE HCL 10 MG SUSTAINED ACTING TABLET PO SCH (09:33)
[2018-12-20] MEDS: POLYETHYLENE GLYCOL 3350 119 GM BTL PO SCH (09:33)
--- NOTE | 2018-12-20 11:41 | DS ---
Physical Exam: SUBJECTIVE: Patient seen and examined. ambulating with a steady gait. OBJECTIVE: called dr. arias office and made staff aware that patient will be d/c today. Dr. Santos office to call in the oxycodone/oxycontin. dressing changes to be done by surgery on d/c Vital Signs Period Temp Pulse Resp BP Sys/Mathews Pulse Ox Last 24 Hr 98.1 F-98.6 F 68-77 18-18 115-179/60-104 96 PHYSICAL EXAM GENERAL: The patient is awake, alert, and fully oriented, in no acute distress. HEAD: Normal with no signs of trauma. EYES: PERRL, extraocular movements intact, sclera anicteric, conjunctiva clear. No ptosis. ENT: Ears normal, nares patent, oropharynx clear without exudates, moist mucous membranes. NECK: Trachea midline, full range of motion, supple. LUNGS: Breath sounds equal, clear to auscultation anteriorly. HEART: Regular rate and rhythm ABDOMEN: Soft, nontender, nondistended, normoactive bowel sounds, EXTREMITIES: no edema. soft calves, no pain. on SCDs NEUROLOGICAL:normal speech, gait not observed. PSYCH: Normal mood, normal affect. SKIN: back dressing intact. LABS Laboratory Results - last 24 hr 12/19/18 12/20/18 12/20/18 17:20 05:52 07:10 WBC 6.8 RBC 3.81 L Hgb 12.3 Hct 33.6 L MCV 88.2 MCH 32.3 MCHC 36.7 H RDW 12.3 Plt Count 190 MPV 7.4 L Absolute Neuts (auto) 4.0 Neutrophils % 59.9 Lymphocytes % 22.2 Monocytes % 8.5 Eosinophils % 8.7 H Basophils % 0.7 Nucleated RBC % 0 Sodium Potassium Chloride Carbon Dioxide Anion Gap BUN Creatinine Creat Clearance w eGFR POC Glucometer 132 128 Random Glucose Calcium Total Bilirubin AST ALT Alkaline Phosphatase Total Protein Albumin 12/20/18 07:10 WBC RBC Hgb Hct MCV MCH MCHC RDW Plt Count MPV Absolute Neuts (auto) Neutrophils % Lymphocytes % Monocytes % Eosinophils % Basophils % Nucleated RBC % Sodium 136 Potassium 4.4 Chloride 102 Carbon Dioxide 29 Anion Gap 5 L BUN 19 H Creatinine 0.8 Creat Clearance w eGFR 96.72 POC Glucometer Random Glucose 132 H Calcium 8.5 Total Bilirubin 0.7 AST 19 ALT 21 Alkaline Phosphatase 73 Total Protein 5.8 L Albumin 2.7 L HOSPITAL COURSE: Date of Admission:12/13/18 Date of Discharge: 12/20/18 Patient is a 68 year old male with a significant past medical history of hypertension, diabetes, bph, chronic lumbar spine pain. He is s/p L2-S1 Posterior Lumbar Interbody Fusion POD 7. Overall feels and looks better and able to mobilize with PT. will be discharge home. Back surgery Pain management, oxycotin, oxycodone to be called in by surgeon office. continue bowel regimen, incentive spirometer as outpatient. Surgery follow up as an outpatient. Card: Hypertension. controlled On lisinopril, hytrin Endocrine diabetes. start home medications. and monitor with PCP full code. d/c home. Minutes to complete discharge: 45 Discharge Summary Reason For Visit: FLAT BACK SYNDROME Current Active Problems BPH (benign prostatic hyperplasia) (Acute) Diabetes mellitus (Acute) HTN (hypertension) (Acute) S/P lumbar spinal fusion (Acute) Condition: Stable - Instructions Diet, Activity, Other Instructions: Laminectomy with Fusion Post-Operative Instructions Diet: You may resume your regular diet. We recommend adding fiber supplements ( Gummies, Benefiber, etc) and eating plenty of fiber rich foods to prevent constipation which can be caused by taking narcotic pain medications. You may also use a stool softener such as Dulcolax. We recommend drinking plenty of water unless you are on fluid restrictions for another medical condition. If you are a Diabetic, make sure to keep your glucose well controlled as elevated glucose levels promote infection. Medications: You may resume your previous medications unless otherwise instructed by your surgeon, primary care doctor, or acid retort operator. You have been prescribed a Narcotic pain medications. Driving or drinking alcohol is PROHIBITED while taking narcotic pain medications as is operating any heavy machinery. DO NOT take any anti-inflammatory medications (listed below) for the first 12 - 14 weeks following your surgery. Be sure to check your medications in the Medication Reconciliation section of this note to clarify any changes Aspirin (Bufferin, Deejay, Excedrin) Ibuprofen (Advil, Motrin, Nuprin) Ketoprofen (Actron, Orudis) Naproxen (Aleve) your pain medications will be called in by Dr. Arias office. they are aware that you will be discharged today. Wound Care: Leave your dressing in place until your follow up appointment. Keep your dressing clean and dry, if you notice it is soiled please call the office immediately for further instructions. No showers until cleared by your surgeon. Sponge bathe ONLY as soaking your incisions in water can lead to infection. DO NOT go into a bath tub, pool, hot tub, veliz or ocean at any time until you have been cleared to do so by your surgeon. Submerging the incision can cause infection. Activity: DO NOT lift anything over 5 pounds, or bend or twist at the waist. DO walk as much as tolerated. You may go up and down stairs, but slowly. No running. Use assistive devices (walker, cane) until you feel safe to walk independently without them. *DO NOT sit longer than 20 - 30 minutes. You may increase the time as you become more comfortable. *DO NOT sit in low chairs. Your knees should always be lower than your hips. *You should NOT drive until seen in the office for your first post-operative visit. You may be a passenger for a short time (20 - 30 minutes) until you are able to tolerate longer distances. No sexual activity until discussed with your spine surgeon. General recommendations: If sitting, use only a straight back chair to ensure proper support not to exceed a half hour at a time. Lie only on a firm mattress, no couches or recliner chairs. You may lie on your back or side, but not on your abdomen. Absolutely no bending, stooping, pushing, lifting or straining. Avoid housework, especially vacuuming and sweeping. OK to cook, as long as you are not lifting anything heavier than 5 pounds. Learn proper body mechanics to maintain a neutral spine position. Increasing pain is a red flag telling you to rest. DO NOT: Engage in strenuous activity for at least 10 weeks after surgery. If you are given a brace to wear, it should be worn whenever you are up and out of bed. It should NOT be worn at night while you are sleeping. If you need to go to the bathroom during the night, you would not need to put the brace on. Call your surgeon or report to the ED if you develop: FEVERS OVER 101.5 CHEST PAIN, TROUBLE BREATHING, CALF PAIN DRAINAGE FROM THE INCISION (YELLOW/GREEN, FOUL SMELLING) CALL YOUR SURGEONS OFFICE TO SCHEDULE YOUR FOLLOW UP APPOINTMENT IN 1 WEEK. Referrals: Uzair Santos MD [Staff Physician] - 1 Week Disposition: HOME - Home Medications Comprehensive Discharge Medication List: Ambulatory Orders Aspirin 81 mg PO DAILY 12/10/18 Metformin HCl [Glucophage] 850 mg PO DAILY 12/10/18 Lisinopril 20 mg PO DAILY 12/13/18 Terazosin HCl 2 mg PO DAILY 12/13/18 This patient is new to me today: No Emergency Visit: No Critical Care patient: No - Discharge Referral Referred to [facility] No
[2018-12-20 12:51] VITALS: BMI 25.0
[2018-12-20] MEDS ORDERED: oxyCODONE HCL 5 MG TABLET PO PRN (13:34)
[2018-12-20 15:15] VITALS: BP 121/76; PULSE 81; TEMP 98.1
== END 2018-12-20 16:58 | disposition home or self-care (01) | DRG 304 ==
LOC: JSAMEDAYSX 06:12 → JICU 12:39 → J8W 12-14 21:45
PROVIDERS: ADMIT Orthopaedic Surgery Orthopaedic Surgery of the Spine; ATTEND Nurse Practitioner Family
PROC: 0SG1071 Fusion of 2 or more Lumbar Vertebral Joints with Autologous Tissue Substitute, Posterior Approach, Posterior Column, Open Approach (ICD-10-PCS; 2018-12-13)
PROC: 0QB00ZZ Excision of Lumbar Vertebra, Open Approach (ICD-10-PCS; 2018-12-13)
PROC: 00QT0ZZ Repair Spinal Meninges, Open Approach (ICD-10-PCS; 2018-12-13)
PROC: B01BZZZ Fluoroscopy of Spinal Cord (ICD-10-PCS; 2018-12-13)
PROC: 4A1004G Monitoring of Central Nervous Electrical Activity, Intraoperative, Open Approach (ICD-10-PCS; 2018-12-13)
PROC: 0SG10AJ Fusion of 2 or more Lumbar Vertebral Joints with Interbody Fusion Device, Posterior Approach, Anterior Column, Open Approach (ICD-10-PCS; principal; 2018-12-13 08:00)
DX: M51.26 Other intervertebral disc displacement, lumbar region (principal); G97.41 Accidental puncture or laceration of dura during a procedure; G96.11 Dural tear; M48.061 Spinal stenosis, lumbar region without neurogenic claudication; M53.2X6 Spinal instabilities, lumbar region; I10 Essential (primary) hypertension; E11.9 Type 2 diabetes mellitus without complications; N40.0 Benign prostatic hyperplasia without lower urinary tract symptoms; M40.299 Other kyphosis, site unspecified; Y83.9 Surgical procedure, unspecified as the cause of abnormal reaction of the patient, or of later complication, without mention of misadventure at the time of the procedure
CPT/HCPCS: 36415; 76000-TC-FY; 80048; 80053; 82962; 83735; 84100; 85025; 85027; 86850; 86900; 86901; 88304-TC; 88311-TC; 97116-GP; 97162-GP; J0131; J1644